=== PATIENT | female | born 1995 | race African-American/Black ===

== ENCOUNTER → 2020-01-31 08:46 | Outpatient (BNVA) | payer OTHER, SELFPAY | PROVIDERS: PCP Internal Medicine; Visit Provider Nurse Practitioner Gerontology | DX: E11.65 Type 2 diabetes mellitus with hyperglycemia (principal); Z79.4 Long term (current) use of insulin; I10 Essential (primary) hypertension; E55.9 Vitamin D deficiency, unspecified; E66.09 Other obesity due to excess calories; Z68.33 Body mass index [BMI] 33.0-33.9, adult | CPT/HCPCS: 99212 ==

== ENCOUNTER → 2020-03-02 08:11 | Outpatient (BNVA) | payer OTHER, SELFPAY | PROVIDERS: PCP Internal Medicine; Referring Provider Internal Medicine; Visit Provider Nurse Practitioner Gerontology | DX: Z76.89 Persons encountering health services in other specified circumstances (principal) ==

== ENCOUNTER → 2020-03-06 13:44 | Outpatient (BNVA) | payer OTHER, SELFPAY | PROVIDERS: PCP Internal Medicine; Referring Provider Internal Medicine; Visit Provider Nurse Practitioner Gerontology | DX: Z76.89 Persons encountering health services in other specified circumstances (principal) ==

== ENCOUNTER → 2020-07-25 13:53 | Outpatient (BNVA) | payer OTHER, SELFPAY | PROVIDERS: PCP Internal Medicine; Visit Provider Nurse Practitioner Gerontology ==

== ENCOUNTER 2020-10-03 10:48 | Outpatient (REF) | payer OTHER, SELFPAY ==
[2020-10-03 13:11] LABS: MANUAL DIFF FLAG NO
[2020-10-03 13:14] LABS: Basophils Percent Auto 0.5 % (0-2); Eosinophils Absolute Auto 0.1 X10*3/uL (0.0-0.4); Eosinophils Percent Auto 1.2 % (0-4); Hematocrit 34.9 % (37-47); Hemoglobin 10.6 g/dl (12.0-16.0); Imm Gran Abs Auto 0.02 X10*3/uL (0.00-0.03); Imm Gran Pct Auto 0.3 % (0.0-0.4); Lymphocytes Percent Auto 16.9 % (20-40); Mean Corpuscular HGB Conc 30.4 g/dl (31.0-35.0); Mean Corpuscular Hemoglobin 21.3 pg (27.0-33.0); Mean Corpuscular Volume 70.1 fL (80-98); Mean Platelet Volume 10.7 fL (9.4-12.3); Monocytes Absolute Auto 0.4 X10*3/uL (0.1-1.2); Monocytes Percent Auto 7.6 % (2-11); Neutrophils Absolute Auto 4.3 X10*3/uL (2.0-8.3); Neutrophils Percent Auto 73.5 % (45-73); Platelet Count 277 X10*3/uL (160-400); Red Blood Count 4.98 X10*6/uL (4.20-5.50); Red Cell Distribution Width 14.7 % (11.0-16.0); White Blood Count 5.8 X10*3/uL (4.8-10.8)
[2020-10-03 13:30] LABS: Estimated Average Glucose 269 mg/dL
[2020-10-03 13:39] LABS: Alanine Aminotransferase 28 U/L (0-31); Albumin Level 4.1 g/dL (3.5-5.0); Alkaline Phosphatase 88 U/L (39-117); Anion Gap 14 (12-20); Aspartate Amino Transferase 16 U/L (5-31); Bilirubin Total 1.3 mg/dL (0.0-1.0); Blood Urea Nitrogen 13 mg/dL (9-16); Calcium 9.7 mg/dL (8.4-10.2); Chloride 100 mmol/L (96-108); Cholesterol 132 mg/dL; Estimated Glomerular Filt Rate > 60; Glucose Fasting 313 mg/dL (60-99); HDL Cholesterol 48 mg/dL; LDL Cholesterol Calculated 73 mg/dl; Sodium 137 mmol/L (135-145); Total Protein 7.5 g/dL (6.5-8.0); Triglycerides 55 mg/dL
[2020-10-03 13:40] LABS: Carbon Dioxide 27 mmol/L (22-29)
[2020-10-03 13:42] LABS: Creatinine Urine 62.64 mg/dL; Microalbum/Creatinine Ratio Ur 205.9 ug/mg cr
[2020-10-03 14:01] LABS: Free T4 (Free Thyroxine) 1.15 ng/dL (0.71-1.85); Thyroid Stimulating Hormone 0.31 uIU/mL (0.32-4.0); Vitamin D 25-OH Total 4.6 ng/mL (>30)
[2020-10-04 17:21] LABS: LDL Cholesterol Direct 76 mg/dL (<100)
[2020-10-04 19:47] LABS: C Peptide 0.36 ng/mL (0.80-3.85)
[2020-10-08 01:57] LABS: Glutamic acid decarboxylase Ab >250 IU/mL (<5)
[2020-10-08 06:47] LABS: Fructosamine >600 umol/L (205-285)
[2020-10-12 00:18] LABS: Islet Cell Antibody Screen NEGATIVE (NEGATIVE)
== END 2020-10-03 10:49 | disposition home or self-care (01) ==
LOC: HO.10HDL 10:48
PROVIDERS: Nurse Practitioner Gerontology; Visit Provider Internal Medicine
DX: I12.9 Hypertensive chronic kidney disease with stage 1 through stage 4 chronic kidney disease, or unspecified chronic kidney disease (principal); E11.22 Type 2 diabetes mellitus with diabetic chronic kidney disease; N18.9 Chronic kidney disease, unspecified; E11.65 Type 2 diabetes mellitus with hyperglycemia; E55.9 Vitamin D deficiency, unspecified; D64.9 Anemia, unspecified; Z79.4 Long term (current) use of insulin
CPT/HCPCS: 36415; 80053; 80061; 82043; 82306; 82985; 83036; 83721; 84439; 84443; 84681; 85025; 86255; 86341

== ENCOUNTER 2020-12-19 11:07 | Outpatient (REF) | payer OTHER, SELFPAY ==
[2020-12-20 08:18] LABS: HBS Num1 > 1000.00 mIU/mL (0-7.99); ~Hepatitis B Surface Antibody REACTIVE (Nonreactive)
[2020-12-21 21:57] LABS: TS Negative Control Passed; TS Panel A 0; TS Panel B 0; TS Positive Control Passed; TSpotTB Negative (Negative)
== END 2020-12-19 11:08 | disposition home or self-care (01) ==
LOC: HO.10HDL 11:07
PROVIDERS: Visit Provider Internal Medicine
DX: Z11.1 Encounter for screening for respiratory tuberculosis (principal); Z01.84 Encounter for antibody response examination
CPT/HCPCS: 36415; 86481; 86706

== ENCOUNTER 2021-01-29 13:55 | Outpatient (REF) | payer OTHER, SELFPAY ==
[2021-01-29 14:51] LABS: Influenza A PCR NEGATIVE (Negative); Influenza B PCR NEGATIVE (Negative); Resp Syncy Virus RNA Qual PCR NEGATIVE (Negative); SARS COV2 PCR INHOUSE NEGATIVE (Negative)
== END 2021-01-29 13:56 | disposition home or self-care (01) ==
LOC: HO.LNP 13:55
PROVIDERS: Visit Provider Internal Medicine
DX: Z20.822 Contact with and (suspected) exposure to COVID-19 (principal)
CPT/HCPCS: 0241U

== ENCOUNTER → 2021-02-14 09:41 | Outpatient (BNVA) | payer OTHER, SELFPAY | PROVIDERS: PCP Internal Medicine; Visit Provider Nurse Practitioner Gerontology | DX: E10.65 Type 1 diabetes mellitus with hyperglycemia (principal); E55.9 Vitamin D deficiency, unspecified; E66.09 Other obesity due to excess calories; R80.9 Proteinuria, unspecified; I10 Essential (primary) hypertension; R79.89 Other specified abnormal findings of blood chemistry | CPT/HCPCS: 82947; 83036; 99212 ==

== ENCOUNTER 2021-02-14 10:24 | Emergency (ER) | payer OTHER, SELFPAY ==
[2021-02-14 11:20] VITALS: BP 127/88; PULSE 102; RESP 18; TEMP 36.2; O2SAT 100; BMI 28.3
--- NOTE | 2021-02-14 11:24 | PC.NURSE ---
poc [id number]
[2021-02-14 11:30] LABS: Glucose, Whole Blood 384 mg/dL (60-115)
[2021-02-14 11:59] LABS: MANUAL DIFF FLAG NO
[2021-02-14 12:05] LABS: Basophils Absolute Auto 0.1 X10*3/uL (0.0-0.2); Basophils Percent Auto 0.7 % (0-2); Eosinophils Absolute Auto 0.1 X10*3/uL (0.0-0.4); Hematocrit 37.7 % (37.0-47.0); Hemoglobin 11.6 g/dl (12.0-16.0); Imm Gran Abs Auto 0.04 X10*3/uL (0.00-0.03); Imm Gran Pct Auto 0.5 % (0.0-0.4); Lymphocytes Absolute Auto 1.4 X10*3/uL (1.2-4.9); Lymphocytes Percent Auto 18.7 % (20-40); Mean Corpuscular HGB Conc 30.8 g/dl (31.0-35.0); Mean Corpuscular Hemoglobin 20.8 pg (27.0-33.0); Mean Corpuscular Volume 67.6 fL (80.0-98.0); Mean Platelet Volume 9.8 fL (9.4-12.3); Monocytes Absolute Auto 0.6 X10*3/uL (0.1-1.2); Monocytes Percent Auto 8.3 % (2-11); Neutrophils Absolute Auto 5.2 x10*3/uL (2.0-8.3); Neutrophils Percent Auto 70.8 % (45-73); Platelet Count 319 X10*3/uL (160-400); Red Blood Count 5.58 X10*6/uL (4.20-5.50); Red Cell Distribution Width 15.8 % (11.0-16.0); White Blood Count 7.3 X10*3/uL (4.8-10.8)
[2021-02-14 12:28] LABS: Alanine Aminotransferase 12 U/L (0-31); Albumin Level 4.4 g/dL (3.5-5.0); Alkaline Phosphatase 86 U/L (39-117); Anion Gap 14 (12-20); Aspartate Amino Transferase 11 U/L (5-31); Bilirubin Total 1.4 mg/dL (0.0-1.0); Blood Urea Nitrogen 13 mg/dL (9-16); Calcium 10.1 mg/dL (8.4-10.2); Carbon Dioxide 27 mmol/L (22-29); Chloride 97 mmol/L (96-108); Estimated Glomerular Filt Rate 58; Glucose Random 373 mg/dL (60-115); Potassium 4.6 mmol/L (3.3-5.1); Sodium 133 mmol/L (135-145); Total Protein 8.1 g/dL (6.5-8.0)
--- NOTE | 2021-02-14 12:51 | ED_ITS ---
HPI - General Adult General Chief complaint: General Medical Stated complaint: high bs Time Seen by Provider: 02/14/21 12:51 Source: patient Mode of arrival: ambulatory Limitations: no limitations History of Present Illness HPI narrative: 26-year-old female with past medical history of type 1 diabetes, abnormal TSH, vitamin-D deficiency, hypertension was sent to emergency department by her post acute care registered nurse. Patient was seen in the Endocrinology day office this morning and her blood sugar was 479. Patient takes Lantus at night 22 units and metformin 1000 mg in the morning. Patient reports that she took all her medications as prescribed by her provider this morning. Patient denies any symptoms of hyperglycemia. Patient's A1c was 12.5 %. Related Data Home Medications Medication Instructions Recorded Confirmed lisinopril 10 mg tablet 10 mg PO BID tab 07/25/20 02/14/21 Previous Rx's Medication Instructions Recorded blood sugar diagnostic (FreeStyle #150 ea 02/14/21 Lite Strips) blood-glucose meter (FreeStyle #1 ea 02/14/21 Lite Meter) cholecalciferol (vitamin D3) 50 50 mcg PO DAILY #30 cap 02/14/21 mcg (2,000 unit) capsule insulin aspart U-100 100 unit/mL 5 unit (0.05 mL) SUBCUT TID #15 ml 02/14/21 (3 mL) subcutaneous pen (Novolog Flexpen U-100 Insulin aspart) insulin glargine 100 unit/mL (3 22 unit (0.22 mL) SUBCUT DAILY #15 02/14/21 mL) subcutaneous pen (Lantus ml Solostar U-100 Insulin) lancets 28 gauge (FreeStyle #200 ea 02/14/21 Lancets) pen needle, diabetic 32 gauge x #125 ea 02/14/2132 (BD Ultra-Fine Sowmya Pen Needle) Allergies Allergy/AdvReac Type Severity Reaction Status Date / Time Seasonal Allergies Allergy Mild stuffy Verified 02/14/21 11:20 Review of Systems Review of Systems: Constitutional : No Weight loss, No Fever, No Chills, No Night Sweats, No Fatigue, No Malaise ENT/Mouth : No Hearing loss, No Ear Pain, No Nasal Congestion, No Sinus Pain, No Hoarseness, No sore throat, No Rhinorrhea, No Swallowing Difficulty Eyes: No Eye Pain, No Swelling, No Redness, No Foreign Body, No Discharge, No Vision Changes Cardiovascular : No Chest Pain, No SOB, No Dyspnea on Exertion, No Orthopnea, No Edema, No Palpitations Respiratory : No Cough, No Sputum, No Wheezing, No Smoke Exposure, No Dyspnea Gastrointestinal : No Nausea, No Vomiting, No Diarrhea, No Constipation, No abdominal Pain, No Hematochezia, No Melena Genitourinary : no irregular bleeding, No Dysuria, No Urinary Frequency, No Hematuria, No Urinary Incontinence, No Urgency, No Flank Pain, No Urinary Flow Changes, No Hesitancy Musculoskeletal : No joint pain, No Myalgias, No Joint Swelling Skin : No Skin Lesions, No rash Neuro : No Weakness, No Numbness, No Paresthesias, No Loss of Consciousness, No Dizziness, No Headache Endocrine : No Polyuria, No Polydipsia, No Temperature Intolerance Yes all other systems are reviewed and are negative PMFSH Past Medical History Medical History Essential hypertension Obesity due to excess calories Proteinuria Type 1 diabetes mellitus with hyperglycemia Vitamin D deficiency Surgical History History of neurologic surgery Hx of bilateral breast reduction surgery Family History Family History Father CVD (cardiovascular disease) Mother No problems noted. Social History Social History Household Members: None Alcohol intake: current Alcohol intake frequency: holidays/special occasions only Alcohol type: wine Patient Tobacco Use Status: Never used Tobacco Substance Use Type: Marijuana Advance Directives: No Advance Directives Information Provided: No Patient : No Physical Exam Vital Signs: Vital Signs: Last Vital Signs Temp 98.9 F 02/14/21 14:03 Pulse 93 02/14/21 14:03 Resp 16 02/14/21 14:03 BP 130/84 02/14/21 14:03 Pulse Ox 99 02/14/21 14:03 Body Mass Index 28.3 Const: General: healthy appearing, no acute distress and well developed Nutritional Appearance: well nourished Orientation/consciousness: patient oriented x3 HENMT: Head: Yes normal to inspection, Yes normocephalic and Yes atraumatic Face and sinus: Yes normal facial exam Mouth: Normal oral and palatal mucosa present Throat: Yes posterior oropharynx normal, Yes tonsils normal and Yes uvula midline Eyes: General: appearance normal, both eyes and all related structures Neck: Neck: Yes normal visual inspection, Yes full ROM and Yes trachea midline Thyroid: Thyroid normal Resp: Effort & Inspection: normal respiratory effort, able to speak in complete sentences, no tracheal deviation and symmetric chest movement Auscul tation: clear to auscultation bilaterally Cardio: Jugular venous distension: no JVD Rate: regular rate Rhythm: regular rhythm Heart sounds: S1 normal heart sound present, S2 normal heart sound present, no gallops and no murmurs GI: Inspection: Yes normal to inspection and No distended Palpation (GI): Soft to palpation, not firm, nontender and No hepatosplenomegaly present Auscultation: normal bowel sounds : General: Yes no CVA tenderness Back/Spine/Pelvis: Back: no CVA tenderness Skin: General skin exam: elasticity normal, turgor normal and dry skin Neuro: General: patient oriented x3 Psych: Appearance: grossly normal Mental Status: mental status grossly normal Speech and movement: Normal speech and movement present Affect: normal affect Attitude: cooperative Thought process: Normal thought process present Thought content: Normal thought content present Insight: Good insight present (Psych) Judgement: Good judgement present (Psych) Course Course Course Narrative: 26-year-old female with past medical history of type 1 diabetes, vitamin-D deficiency, hypertension is here today sent by her post acute care registered nurse office. Patient was seen by post acute care registered nurse this morning and her blood sugar was 479. Her A1c was 12.5%. Patient denies any hyperglycemia symptoms. She is taking Lantus 22 units at night and metformin 1000 mg is in the morning. Patient reports that before her appointment she did took all the medication as prescribed. Her post acute care registered nurse stopped metformin and added NovoLog 5 units before meals. No change on her Lantus insulin. Repeat blood sugar in the ED was 373 initially. And that was 1 hour ago. Patient is hungry we will repeat blood sugar now Reevaluation(s) Reevaluation #1: Repeat blood sugars 325, will give her 5 units of insulin, IV fluids, food. Patient has normal anion gap, not in DKA. Patient looks hemodynamically stable. Will repeat blood sugar hour after her insulin. Time: 11:53 Time: 14:20 Reevaluation #3: Patient reports that she is feeling good. IV fluids infused, patient tolerated well. Ate lunch. Repeat blood sugar 236. Will send patient home to follow-up with her post acute care registered nurse. Medical Decision Making Lab Data Result diagrams: 02/14/21 11:53 02/14/21 11:53 Labs: Lab Results 02/14/21 02/14/21 02/14/21 Range/Units 11:25 11:53 11:53 WBC 7.3 (4.8-10.8) X10*3/uL RBC 5.58 H (4.20-5.50) X10*6/uL Hgb 11.6 L (12.0-16.0) g/dl Hct 37.7 (37.0-47.0) % MCV 67.6 L (80.0-98.0) fL MCH 20.8 L (27.0-33.0) pg MCHC 30.8 L (31.0-35.0) g/dl RDW 15.8 (11.0-16.0) % Plt Count 319 (160-400) X10*3/uL MPV 9.8 (9.4-12.3) fL Immature Gran % (Auto) 0.5 H (0.0-0.4) % Neut % (Auto) 70.8 (45-73) % Lymph % (Auto) 18.7 L (20-40) % [place] % (Auto) 8.3 (2-11) % Eos % (Auto) 1.0 (0-4) % Baso % (Auto) 0.7 (0-2) % Lymph # (Auto) 1.4 (1.2-4.9) X10*3/uL [place] # (Auto) 0.6 (0.1-1.2) X10*3/uL Eos # (Auto) 0.1 (0.0-0.4) X10*3/uL Baso # (Auto) 0.1 (0.0-0.2) X10*3/uL Abs Immat Gran (auto) 0.04 H (0.00-0.03) X10*3/uL Absolute Neuts (auto) 5.2 (2.0-8.3) x10*3/uL Absolute Nucleated RBC 0.000 (0.0-0.012) X10*3/uL Nucleated RBC % (auto) 0.0 (0.0-0.2) /100WBC Sodium 133 L (135-145) mmol/L Potassium 4.6 (3.3-5.1) mmol/L Chloride 97 (96-108) mmol/L Carbon Dioxide 27 (22-29) mmol/L Anion Gap 14 (12-20) BUN 13 (9-16) mg/dL Creatinine 1.12 (0.5-1.4) mg/dL Estim Creat Clear Calc 74.0 Estimated GFR 58 POC Glucose 384 H* (60-115) mg/dL Random Glucose 373 H* (60-115) mg/dL Calcium 10.1 (8.4-10.2) mg/dL Total Bilirubin 1.4 H (0.0-1.0) mg/dL AST 11 (5-31) U/L ALT 12 (0-31) U/L Alkaline Phosphatase 86 (39-117) U/L Total Protein 8.1 H (6.5-8.0) g/dL Albumin 4.4 (3.5-5.0) g/dL 02/14/21 02/14/21 Range/Units 12:53 14:20 WBC (4.8-10.8) X10*3/uL RBC (4.20-5.50) X10*6/uL Hgb (12.0-16.0) g/dl Hct (37.0-47.0) % MCV (80.0-98.0) fL MCH (27.0-33.0) pg MCHC (31.0-35.0) g/dl RDW (11.0-16.0) % Plt Count (160-400) X10*3/uL MPV (9.4-12.3) fL Immature Gran % (Auto) (0.0-0.4) % Neut % (Auto) (45-73) % Lymph % (Auto) (20-40) % [place] % (Auto) (2-11) % Eos % (Auto) (0-4) % Baso % (Auto) (0-2) % Lymph # (Auto) (1.2-4.9) X10*3/uL [place] # (Auto) (0.1-1.2) X10*3/uL Eos # (Auto) (0.0-0.4) X10*3/uL Baso # (Auto) (0.0-0.2) X10*3/uL Abs Immat Gran (auto) (0.00-0.03) X10*3/uL Absolute Neuts (auto) (2.0-8.3) x10*3/uL Absolute Nucleated RBC (0.0-0.012) X10*3/uL Nucleated RBC % (auto) (0.0-0.2) /100WBC Sodium (135-145) mmol/L Potassium (3.3-5.1) mmol/L Chloride (96-108) mmol/L Carbon Dioxide (22-29) mmol/L Anion Gap (12-20) BUN (9-16) mg/dL Creatinine (0.5-1.4) mg/dL Estim Creat Clear Calc Estimated GFR POC Glucose 325 H 236 H (60-115) mg/dL Random Glucose (60-115) mg/dL Calcium (8.4-10.2) mg/dL Total Bilirubin (0.0-1.0) mg/dL AST (5-31) U/L ALT (0-31) U/L Alkaline Phosphatase (39-117) U/L Total Protein (6.5-8.0) g/dL Albumin (3.5-5.0) g/dL Discharge Plan Discharge Clinical Impression: High blood sugar, Type 1 diabetes mellitus with hyperglycemia Patient Disposition: Home, Self-Care Instructions: Diabetic Hyperglycemia (ED), Diabetes Type 1: Management (ED) Additional Instructions: You were seen here today after your post acute care registered nurse's sent you for high blood sugar. You were given 1 L of fluids. Your blood sugar improved after giving you 5 units of insulin. Please make sure you follow-up with your post acute care registered nurse and take your insulin as ordered by her. You may return to emergency department if your symptoms will get worse or if you will experience any additional concerning symptoms Prescriptions: No Action lisinopril 10 mg tablet 10 mg PO BID RF: 0 (DME) blood-glucose meter [FreeStyle Lite Meter] Kit See Rx Instructions .ROUTE .MEDSUPPLY Qty: 1 RF: 0 (DME) FreeStyle Lite Strips Strip See Rx Instructions .ROUTE .MEDSUPPLY Qty: 150 RF: 11 (DME) lancets [FreeStyle Lancets] 28 gauge misc See Rx Instructions .ROUTE .MEDSUPPLY Qty: 200 RF: 11 insulin aspart U-100 [Novolog Flexpen U-100 Insulin] 100 unit/mL (3 mL) insulin pen 5 unit subcut TID Qty: 15 RF: 6 Lantus Solostar U-100 Insulin 100 unit/mL (3 mL) insulin pen 22 unit subcut DAILY Qty: 15 RF: 6 (DME) pen needle, diabetic [BD Ultra-Fine Sowmya Pen Needle] 32 gauge x 5/32 needle See Rx Instructions .ROUTE .MEDSUPPLY Qty: 125 RF: 11 cholecalciferol (vitamin D3) 50 mcg (2,000 unit) capsule 50 mcg PO DAILY Qty: 30 RF: 11 Referrals: Howard Crespo MD [Primary Care Provider] - 1 week Stand Alone Forms: Work/School Release Interventions: ED Discharge Assessment Last Done: 02/14/21 14:52 Discharge Date/Time: 02/14/21 14:53
[2021-02-14 12:57] LABS: Glucose, Whole Blood 325 mg/dL (60-115)
[2021-02-14] MEDS: 0.9 % Sodium Chloride 1,000 ML 999 ML IV (13:20)
[2021-02-14] MEDS: Insulin Regular, Human 100 UNIT/ML 3 ML VIAL IVPUSH (13:22)
[2021-02-14 14:03] VITALS: BP 130/84; PULSE 93; RESP 16; TEMP 37.2; O2SAT 99
[2021-02-14 14:25] LABS: Glucose, Whole Blood 236 mg/dL (60-115)
== END 2021-02-14 14:53 | disposition home or self-care (01) ==
PROVIDERS: Emergency Provider Emergency Medicine Emergency Medical Services; PCP Internal Medicine
DX: E10.65 Type 1 diabetes mellitus with hyperglycemia (principal); I10 Essential (primary) hypertension; Z79.4 Long term (current) use of insulin; Z79.899 Other long term (current) drug therapy
CPT/HCPCS: 36415; 80053; 82947; 85025; 96361; 96374; 99284

== ENCOUNTER → 2021-02-27 09:56 | Outpatient (BNVA) | payer OTHER, SELFPAY | PROVIDERS: PCP Internal Medicine; Visit Provider Registered Nurse Diabetes Educator | DX: E10.65 Type 1 diabetes mellitus with hyperglycemia (principal); Z79.4 Long term (current) use of insulin | CPT/HCPCS: 99211 ==

== ENCOUNTER 2021-02-28 07:52 | Emergency (ER) | payer OTHER, SELFPAY ==
[2021-02-28 08:04] LABS: Glucose, Whole Blood 243 mg/dL (60-115)
[2021-02-28 08:22] VITALS: BP 129/93; PULSE 90; RESP 16; TEMP 35.5; O2SAT 100
--- NOTE | 2021-02-28 08:28 | ED.GENADULT ---
HPI - General Adult General Chief complaint: General Medical Stated complaint: high bs Time Seen by Provider: 02/28/21 08:27 Source: patient Mode of arrival: ambulatory Limitations: no limitations History of Present Illness HPI narrative: 26 years old female with type 1 diabetes controlled with insulin, woke up this morning sugar was high, patient also felt that her body is swollen, noted cheeks and periorbital swelling with both hands, patient came to the ED for evaluation, While patient in the ED feeling back to normal. Related Data Home Medications Medication Instructions Recorded Confirmed lisinopril 10 mg tablet 10 mg PO BID tab 07/25/20 02/14/21 Previous Rx's Medication Instructions Recorded blood sugar diagnostic (FreeStyle #150 ea 02/14/21 Lite Strips) blood-glucose meter (FreeStyle #1 ea 02/14/21 Lite Meter) cholecalciferol (vitamin D3) 50 50 mcg PO DAILY #30 cap 02/14/21 mcg (2,000 unit) capsule insulin aspart U-100 100 unit/mL 5 unit (0.05 mL) SUBCUT TID #15 ml 02/14/21 (3 mL) subcutaneous pen (Novolog Flexpen U-100 Insulin aspart) insulin glargine 100 unit/mL (3 22 unit (0.22 mL) SUBCUT DAILY #15 02/14/21 mL) subcutaneous pen (Lantus ml Solostar U-100 Insulin) lancets 28 gauge (FreeStyle #200 ea 02/14/21 Lancets) pen needle, diabetic 32 gauge x #125 ea 02/14/21/32 (BD Ultra-Fine Sowmya Pen Needle) Allergies Allergy/AdvReac Type Severity Reaction Status Date / Time Seasonal Allergies Allergy Mild stuffy Verified 02/14/21 11:20 Review of Systems Review of Systems: All other systems are reviewed and are negative Constitutional: Reports as per HPI and Reports no additional constitutional complaints Eyes: Reports as per HPI and Reports no additional eye complaints Reports system reviewed and no additional complaints, except as documented Cardiovascular: Reports as per HPI and Reports no additional cardiovascular complaints Respiratory: Reports as per HPI and Reports no additional respiratory complaints Gastrointestinal: Reports as per HPI and Reports no additional gastrointestinal complaints Genitourinary: Reports no additional female genitourinary complaints Musculoskeletal: Reports no additional musculoskeletal complaints Skin/Breast: Reports system reviewed and no additional complaints, except as docu Psychiatric: Reports no additional psychiatric complaints Endocrine: Reports no additional endocrine complaints Hematologic/Lymphatic: Reports no additional hematologic/lymphatic complaints Allergic/Immunologic: Reports no additional allergic/immunologic complaints Reports system reviewed and no additional complaints, except as documented and Reports Abnormal speech present [facility] Past Medical History Medical History Essential hypertension Obesity due to excess calories Proteinuria Type 1 diabetes mellitus with hyperglycemia Vitamin D deficiency Surgical History History of neurologic surgery Hx of bilateral breast reduction surgery Family History Family History Father CVD (cardiovascular disease) Mother No problems noted. Social History Social History Household Members: None Alcohol intake: current Alcohol intake frequency: holidays/special occasions only Alcohol type: wine Patient Tobacco Use Status: Never used Tobacco Substance Use Type: Marijuana Advance Directives: No Advance Directives Information Provided: Yes Physical Exam Vital Signs: Vital Signs: Last Vital Signs Temp 98.1 F 02/28/21 10:50 Pulse 81 02/28/21 10:50 Resp 20 02/28/21 10:50 BP 141/102 H 02/28/21 10:50 Pulse Ox 100 02/28/21 10:50 BMI result Body Mass Index 30.0 Vital signs have been reviewed as appeared to be correct. Blood pressure normal. Heart rate normal. Respiration rate normal. Temperature normal. Oxygen saturation normal. Appearance: Alert. Oriented X3. No acute distress. Head: Normal external exam. Normocephalic. Atraumatic. No Calvin signs noted. No raccoon eyes noted Eyes: PERRLA. EOMI. Conjunctiva and sclera normal. Eyelids normal. ENT: TM's Normal. Pharynx normal. Uvula midline. Moist mucous membranes. No trismus noted. No drooling noted. No muffled voice noted. Neck: Normal inspection. Neck supple. FROM. No adenopathy. Thyroid Normal. No meningeal signs. No neck mass noted. CVS: Normal heart rate and rhythm. Heart sound normal. No murmurs noted. Pulses normal throughout. Respiratory: No respiratory distress. Painless inspiration. Breath sounds normal. No wheezes/rales/rhonchi noted. Chest nontender. No accessory muscle usage noted or decreased air movement noted. Abdomen: Soft and nontender. Bowel sounds normal in all 4 quadrants. No distention noted. No organomegaly noted. No visible injury noted. Back: No CVA tenderness. Full range of motion noted. Skin: Skin warm and dry. Normal skin color. Normal skin turgor. No rashes/lesions/lacerations noted. Extremities: No lower extremity edema. Extremities exhibit normal range of motion. Extremities nontender. Neuro: Oriented X 3. Cranial nerve exam: II-XII are grossly intact No motor deficit. No sensory deficit. Reflexes normal. Course Course Course Narrative: Assessment and plan. 26-year-old female history of insulin-dependent diabetes came in for hyperglycemia, patient has slight elevation blood sugar, no anion gap, patient not in DKA, clinically patient looks stable with stable vital signs. Patient will be discharged home instructed to drink plenty of fluid and keep monitoring her blood glucose. Medical Decision Making Lab Data Lab results reviewed: Yes I reviewed the patient's lab results. Result diagrams: 02/28/21 08:36 02/28/21 08:36 Labs: Lab Results 02/28/21 02/28/21 02/28/21 Range/Units 08:00 08:36 08:36 WBC 7.3 (4.8-10.8) X10*3/uL RBC 4.62 (4.20-5.50) X10*6/uL Hgb 9.8 L (12.0-16.0) g/dl Hct 31.3 L (37.0-47.0) % MCV 67.7 L (80.0-98.0) fL MCH 21.2 L (27.0-33.0) pg MCHC 31.3 (31.0-35.0) g/dl RDW 16.0 (11.0-16.0) % Plt Count 241 (160-400) X10*3/uL MPV 9.9 (9.4-12.3) fL Immature Gran % (Auto) 1.1 H (0.0-0.4) % Neut % (Auto) 71.8 (45-73) % Lymph % (Auto) 17.2 L (20-40) % [place] % (Auto) 8.5 (2-11) % Eos % (Auto) 1.1 (0-4) % Baso % (Auto) 0.3 (0-2) % Lymph # (Auto) 1.3 (1.2-4.9) X10*3/uL [place] # (Auto) 0.6 (0.1-1.2) X10*3/uL Eos # (Auto) 0.1 (0.0-0.4) X10*3/uL Baso # (Auto) 0.0 (0.0-0.2) X10*3/uL Abs Immat Gran (auto) 0.08 H (0.00-0.03) X10*3/uL Absolute Neuts (auto) 5.2 (2.0-8.3) x10*3/uL Absolute Nucleated RBC 0.000 (0.0-0.012) X10*3/uL Nucleated RBC % (auto) 0.0 (0.0-0.2) /100WBC Sodium 135 (135-145) mmol/L Potassium 4.2 (3.3-5.1) mmol/L Chloride 102 (96-108) mmol/L Carbon Dioxide 27 (22-29) mmol/L Anion Gap 10 L (12-20) BUN 15 (9-16) mg/dL Creatinine 1.00 (0.5-1.4) mg/dL Estim Creat Clear Calc 85.3 Estimated GFR > 60 POC Glucose 243 H (60-115) mg/dL Random Glucose 245 H (60-115) mg/dL Calcium 8.9 D (8.4-10.2) mg/dL Total Bilirubin 0.9 (0.0-1.0) mg/dL Direct Bilirubin 0.4 (0.0-0.5) mg/dL AST 12 (5-31) U/L ALT 14 (0-31) U/L Alkaline Phosphatase 79 (39-117) U/L Total Protein 6.4 L D (6.5-8.0) g/dL Albumin 3.5 D (3.5-5.0) g/dL Lipase 15 (8-78) U/L TSH 0.68 (0.32-4.0) uIU/mL Urine Color Urine Appearance Urine pH (5.0-8.0) Ur Specific [place] (1.005-1.025) Urine Protein (NEG-TRACE) MG/DL Urine Glucose (UA) (NEG) MG/DL Urine Ketones (NEG) MG/DL Urine Blood (NEG) Urine Nitrite (NEG) Ur Leukocyte Esterase (NEG) Urine RBC (0) /HPF Urine WBC (0-4) /HPF Ur Squamous Epith Cells /LPF Urine Bacteria Urine Test (NEGATIVE) 02/28/21 02/28/21 Range/Units 09:18 09:18 WBC (4.8-10.8) X10*3/uL RBC (4.20-5.50) X10*6/uL Hgb (12.0-16.0) g/dl Hct (37.0-47.0) % MCV (80.0-98.0) fL MCH (27.0-33.0) pg MCHC (31.0-35.0) g/dl RDW (11.0-16.0) % Plt Count (160-400) X10*3/uL MPV (9.4-12.3) fL Immature Gran % (Auto) (0.0-0.4) % Neut % (Auto) (45-73) % Lymph % (Auto) (20-40) % [place] % (Auto) (2-11) % Eos % (Auto) (0-4) % Baso % (Auto) (0-2) % Lymph # (Auto) (1.2-4.9) X10*3/uL [place] # (Auto) (0.1-1.2) X10*3/uL Eos # (Auto) (0.0-0.4) X10*3/uL Baso # (Auto) (0.0-0.2) X10*3/uL Abs Immat Gran (auto) (0.00-0.03) X10*3/uL Absolute Neuts (auto) (2.0-8.3) x10*3/uL Absolute Nucleated RBC (0.0-0.012) X10*3/uL Nucleated RBC % (auto) (0.0-0.2) /100WBC Sodium (135-145) mmol/L Potassium (3.3-5.1) mmol/L Chloride (96-108) mmol/L Carbon Dioxide (22-29) mmol/L Anion Gap (12-20) BUN (9-16) mg/dL Creatinine (0.5-1.4) mg/dL Estim Creat Clear Calc Estimated GFR POC Glucose (60-115) mg/dL Random Glucose (60-115) mg/dL Calcium (8.4-10.2) mg/dL Total Bilirubin (0.0-1.0) mg/dL Direct Bilirubin (0.0-0.5) mg/dL AST (5-31) U/L ALT (0-31) U/L Alkaline Phosphatase (39-117) U/L Total Protein (6.5-8.0) g/dL Albumin (3.5-5.0) g/dL Lipase (8-78) U/L TSH (0.32-4.0) uIU/mL Urine Color YELLOW Urine Appearance CLEAR Urine pH 6.0 (5.0-8.0) Ur Specific [place] 1.010 (1.005-1.025) Urine Protein NEG (NEG-TRACE) MG/DL Urine Glucose (UA) >=1000 H (NEG) MG/DL Urine Ketones NEG (NEG) MG/DL Urine Blood NEG (NEG) Urine Nitrite NEG (NEG) Ur Leukocyte Esterase NEG (NEG) Urine RBC 0 (0) /HPF Urine WBC 0 (0-4) /HPF Ur Squamous Epith Cells TRACE /LPF Urine Bacteria Not Reportable Urine Test NEGATIVE (NEGATIVE) Discharge Plan Discharge Clinical Impression: Type 1 diabetes mellitus with hyperglycemia Patient Disposition: Home, Self-Care Instructions: Diabetes and Exercise (ED) Prescriptions: No Action lisinopril 10 mg tablet 10 mg PO BID RF: 0 (DME) blood-glucose meter [FreeStyle Lite Meter] Kit See Rx Instructions .ROUTE .MEDSUPPLY Qty: 1 RF: 0 (DME) FreeStyle Lite Strips Strip See Rx Instructions .ROUTE .MEDSUPPLY Qty: 150 RF: 11 (DME) lancets [FreeStyle Lancets] 28 gauge misc See Rx Instructions .ROUTE .MEDSUPPLY Qty: 200 RF: 11 insulin aspart U-100 [Novolog Flexpen U-100 Insulin] 100 unit/mL (3 mL) insulin pen 5 unit subcut TID Qty: 15 RF: 6 Lantus Solostar U-100 Insulin 100 unit/mL (3 mL) insulin pen 22 unit subcut DAILY Qty: 15 RF: 6 (DME) pen needle, diabetic [BD Ultra-Fine Sowmya Pen Needle] 32 gauge x 5/32 needle See Rx Instructions .ROUTE .MEDSUPPLY Qty: 125 RF: 11 cholecalciferol (vitamin D3) 50 mcg (2,000 unit) capsule 50 mcg PO DAILY Qty: 30 RF: 11 Referrals: Howard Crespo MD [Primary Care Provider] - 2 days Stand Alone Forms: Work/School Release
[2021-02-28 08:41] LABS: MANUAL DIFF FLAG NO
[2021-02-28 08:45] LABS: Basophils Percent Auto 0.3 % (0-2); Eosinophils Absolute Auto 0.1 X10*3/uL (0.0-0.4); Eosinophils Percent Auto 1.1 % (0-4); Hematocrit 31.3 % (37.0-47.0); Hemoglobin 9.8 g/dl (12.0-16.0); Imm Gran Abs Auto 0.08 X10*3/uL (0.00-0.03); Imm Gran Pct Auto 1.1 % (0.0-0.4); Lymphocytes Absolute Auto 1.3 X10*3/uL (1.2-4.9); Lymphocytes Percent Auto 17.2 % (20-40); Mean Corpuscular HGB Conc 31.3 g/dl (31.0-35.0); Mean Corpuscular Hemoglobin 21.2 pg (27.0-33.0); Mean Corpuscular Volume 67.7 fL (80.0-98.0); Mean Platelet Volume 9.9 fL (9.4-12.3); Monocytes Absolute Auto 0.6 X10*3/uL (0.1-1.2); Monocytes Percent Auto 8.5 % (2-11); Neutrophils Absolute Auto 5.2 x10*3/uL (2.0-8.3); Neutrophils Percent Auto 71.8 % (45-73); Platelet Count 241 X10*3/uL (160-400); Red Blood Count 4.62 X10*6/uL (4.20-5.50); White Blood Count 7.3 X10*3/uL (4.8-10.8)
[2021-02-28 09:02] LABS: Alanine Aminotransferase 14 U/L (0-31); Albumin Level 3.5 g/dL (3.5-5.0); Alkaline Phosphatase 79 U/L (39-117); Anion Gap 10 (12-20); Aspartate Amino Transferase 12 U/L (5-31); Bilirubin Direct 0.4 mg/dL (0.0-0.5); Bilirubin Total 0.9 mg/dL (0.0-1.0); Blood Urea Nitrogen 15 mg/dL (9-16); Calcium 8.9 mg/dL (8.4-10.2); Carbon Dioxide 27 mmol/L (22-29); Chloride 102 mmol/L (96-108); Creatinine Clr Calc Pharmacy 85.3; Estimated Glomerular Filt Rate > 60; Glucose Random 245 mg/dL (60-115); Lipase 15 U/L (8-78); Potassium 4.2 mmol/L (3.3-5.1); Sodium 135 mmol/L (135-145); Total Protein 6.4 g/dL (6.5-8.0)
[2021-02-28 09:21] LABS: Thyroid Stimulating Hormone 0.68 uIU/mL (0.32-4.0)
[2021-02-28 09:28] LABS: Appearance Urine CLEAR; Color Urine YELLOW; Glucose Urine UA >=1000 MG/DL (NEG); Leukocyte Esterase Urine NEG (NEG); Nitrite Urine NEG (NEG); Urine Blood NEG (NEG); Urine Ketones NEG (NEG); Urine Protein NEG (NEG-TRACE)
[2021-02-28 09:32] VITALS: BP 135/100; PULSE 86; RESP 18; TEMP 36.8; O2SAT 100
[2021-02-28 09:47] LABS: RBC Urine 0 /HPF (0); Squamous Epithelial Cell Urine TRACE /LPF; WBC Urine 0 /HPF (0-4)
[2021-02-28 10:01] LABS: UPreg QC Valid YES; Urine Pregnancy NEGATIVE (NEGATIVE)
[2021-02-28 10:50] VITALS: BP 141/102; PULSE 81; RESP 20; TEMP 36.7; O2SAT 100
== END 2021-02-28 11:38 | disposition home or self-care (01) ==
PROVIDERS: Emergency Provider Emergency Medicine; PCP Internal Medicine
DX: E10.65 Type 1 diabetes mellitus with hyperglycemia (principal); I10 Essential (primary) hypertension; Z79.4 Long term (current) use of insulin
CPT/HCPCS: 36415; 80048; 80076; 81001; 81025; 82947; 83690; 84443; 85025; 99283; 99284

== ENCOUNTER 2021-03-18 15:07 | Outpatient (REF) | payer OTHER, SELFPAY ==
[2021-03-18 15:58] LABS: Influenza A PCR NEGATIVE (Negative); Influenza B PCR NEGATIVE (Negative); Resp Syncy Virus RNA Qual PCR NEGATIVE (Negative); SARS COV2 PCR INHOUSE NEGATIVE (Negative)
== END 2021-03-18 15:08 | disposition home or self-care (01) ==
LOC: HO.LNP 15:07
PROVIDERS: Visit Provider Internal Medicine
DX: R09.89 Other specified symptoms and signs involving the circulatory and respiratory systems (principal); J31.0 Chronic rhinitis; Z20.822 Contact with and (suspected) exposure to COVID-19
CPT/HCPCS: 0241U

== ENCOUNTER → 2021-03-27 08:17 | Outpatient (BNVA) | payer OTHER, SELFPAY | PROVIDERS: PCP Internal Medicine; Visit Provider Nurse Practitioner Gerontology ==

== ENCOUNTER 2021-05-15 10:05 | Outpatient (REF) | payer OTHER, SELFPAY ==
[2021-05-15 10:29] LABS: MANUAL DIFF FLAG NO
[2021-05-15 10:32] LABS: Basophils Percent Auto 0.4 % (0-2); Eosinophils Percent Auto 0.7 % (0-4); Hematocrit 33.9 % (37.0-47.0); Imm Gran Abs Auto 0.02 X10*3/uL (0.00-0.03); Imm Gran Pct Auto 0.4 % (0.0-0.4); Lymphocytes Absolute Auto 0.9 X10*3/uL (1.2-4.9); Lymphocytes Percent Auto 16.4 % (20-40); Mean Corpuscular HGB Conc 29.5 g/dl (31.0-35.0); Mean Corpuscular Hemoglobin 19.5 pg (27.0-33.0); Mean Platelet Volume 10.6 fL (9.4-12.3); Monocytes Absolute Auto 0.4 X10*3/uL (0.1-1.2); Monocytes Percent Auto 7.8 % (2-11); Neutrophils Absolute Auto 4.2 x10*3/uL (2.0-8.3); Neutrophils Percent Auto 74.3 % (45-73); Platelet Count 301 X10*3/uL (160-400); Red Blood Count 5.14 X10*6/uL (4.20-5.50); Red Cell Distribution Width 15.8 % (11.0-16.0); White Blood Count 5.6 X10*3/uL (4.8-10.8)
[2021-05-15 10:47] LABS: Estimated Average Glucose 301 mg/dL; Hemoglobin A1c % 12.1 %
[2021-05-15 11:06] LABS: Alanine Aminotransferase 7 U/L (0-31); Albumin Level 3.9 g/dL (3.5-5.0); Alkaline Phosphatase 85 U/L (39-117); Anion Gap 9 (12-20); Aspartate Amino Transferase 11 U/L (5-31); Bilirubin Total 1.2 mg/dL (0.0-1.0); Blood Urea Nitrogen 17 mg/dL (9-16); Calcium 9.6 mg/dL (8.4-10.2); Carbon Dioxide 28 mmol/L (22-29); Chloride 102 mmol/L (96-108); Estimated Glomerular Filt Rate > 60; Glucose Fasting 407 mg/dL (60-99); Iron 41 mcg/dL (30-160); Percent Iron Saturation 10 % (15-50); Potassium 4.4 mmol/L (3.3-5.1); Sodium 135 mmol/L (135-145); Total Iron Binding Capacity 427 mcg/dL (228-428); Total Protein 7.2 g/dL (6.5-8.0); Unsaturated Iron Binding 386 ug/dL
[2021-05-15 11:21] LABS: Thyroid Stimulating Hormone 0.17 uIU/mL (0.32-4.0)
[2021-05-15 14:19] LABS: Creatinine Urine 60.99 mg/dL; Microalbum/Creatinine Ratio Ur 85.2 ug/mg cr
== END 2021-05-15 10:06 | disposition home or self-care (01) ==
LOC: HO.10HDL 10:05
PROVIDERS: Visit Provider Internal Medicine
DX: E11.9 Type 2 diabetes mellitus without complications (principal); R63.5 Abnormal weight gain; I10 Essential (primary) hypertension; J31.0 Chronic rhinitis
CPT/HCPCS: 36415; 80053; 82043; 83036; 83540; 84443; 85025

== ENCOUNTER 2021-06-12 11:06 | Outpatient (REF) | payer OTHER, SELFPAY ==
[2021-06-12 12:09] LABS: Influenza A PCR NEGATIVE (Negative); Influenza B PCR NEGATIVE (Negative); Resp Syncy Virus RNA Qual PCR NEGATIVE (Negative); SARS COV2 PCR INHOUSE NEGATIVE (Negative)
== END 2021-06-12 11:07 | disposition home or self-care (01) ==
LOC: HO.LNP 11:06
PROVIDERS: Visit Provider Internal Medicine
DX: Z20.822 Contact with and (suspected) exposure to COVID-19 (principal); R05.9 Cough, unspecified; R19.7 Diarrhea, unspecified
CPT/HCPCS: 0241U

== ENCOUNTER 2021-09-20 12:39 | Outpatient (REF) | payer OTHER, SELFPAY ==
--- NOTE | 2021-09-20 | EEG_ITS ---
This is a 16-channel EEG with an EKG lead. The patient is reported awake during the tracing. Background EEG rhythm during early part of the tracing is slow to medium amplitude fast with no obvious asymmetry or paroxysmal tendency. The patient intermittently transitioned into drowsiness with no significant abnormality. No definite sharp wave spikes or paroxysmal tendency or asymmetry noted. Cardiac lead did not reveal any significant abnormality. IMPRESSION: No significant abnormality noted on this EEG. MD CACHORRO Head/TERRI / [id number]
--- NOTE | ~2021-09-20 | CT_ITS ---
EXAMINATION: CT HEAD WITHOUT CONTRAST CLINICAL INFORMATION: Syncope and collapse COMPARISON: None TECHNIQUE: Contiguous axial imaging was performed from the skull base to vertex without intravenous administration of contrast. This CT examination was performed using dose optimization techniques as appropriate, variously including the following: *Automated exposure control *Adjustment of mA and/or kV according to patient size (this includes techniques or standardized protocols for targeted exams where dose is matched to indication/reason for exam; i.e. extremities or head) *Use of iterative reconstruction technique DLP: 547 mGy-cm FINDINGS: There is no evidence of an extra-axial collection. There is no evidence of intra-axial or extra-axial hemorrhage. The ventricles and extra-axial CSF spaces are appropriate. Mackenzie-white matter differentiation is normal. No mass, mass effect or infarct is seen. There is a cassidy hole seen in the right frontal bone. No skull fracture is seen. There is bilateral maxillary and ethmoid and left frontal sinusitis. CT/CT head/brain wo con IMPRESSION: No acute intracranial findings. 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 Sinusitis.
== END 2021-09-20 12:40 | disposition home or self-care (01) ==
LOC: HO.NEURO 12:39
PROVIDERS: PCP Internal Medicine; Visit Provider Internal Medicine
DX: R55 Syncope and collapse (principal); G91.9 Hydrocephalus, unspecified
CPT/HCPCS: 70450; 95816

== ENCOUNTER 2021-11-11 10:40 | Outpatient (REF) | payer OTHER, SELFPAY ==
[2021-11-11 11:03] LABS: IDNOW Serial# 08D9AD1C; Strep A Nucleic Acid Negative (Negative)
[2021-11-11 11:26] LABS: Influenza A PCR NEGATIVE (Negative); Influenza B PCR NEGATIVE (Negative); Resp Syncy Virus RNA Qual PCR NEGATIVE (Negative); SARS COV2 PCR INHOUSE NEGATIVE (Negative)
== END 2021-11-11 10:41 | disposition home or self-care (01) ==
LOC: HO.LNP 10:40
PROVIDERS: Visit Provider Internal Medicine
DX: J02.9 Acute pharyngitis, unspecified (principal); R51.9 Headache, unspecified; Z20.822 Contact with and (suspected) exposure to COVID-19
CPT/HCPCS: 0241U; 87651

== ENCOUNTER 2022-02-24 17:22 | Outpatient (REF) | payer OTHER, SELFPAY ==
[2022-02-24 17:38] LABS: MANUAL DIFF FLAG NO
[2022-02-24 17:47] LABS: Basophils Percent Auto 0.3 % (0-2); Eosinophils Absolute Auto 0.1 X10*3/uL (0.0-0.4); Eosinophils Percent Auto 1.2 % (0-4); Hematocrit 35.4 % (37.0-47.0); Hemoglobin 10.8 g/dl (12.0-16.0); Imm Gran Abs Auto 0.03 X10*3/uL (0.00-0.03); Imm Gran Pct Auto 0.4 % (0.0-0.4); Lymphocytes Absolute Auto 1.4 X10*3/uL (1.2-4.9); Lymphocytes Percent Auto 20.9 % (20-40); Mean Corpuscular HGB Conc 30.5 g/dl (31.0-35.0); Mean Corpuscular Hemoglobin 20.8 pg (27.0-33.0); Mean Corpuscular Volume 68.2 fL (80.0-98.0); Mean Platelet Volume 10.3 fL (9.4-12.3); Monocytes Absolute Auto 0.6 X10*3/uL (0.1-1.2); Monocytes Percent Auto 9.6 % (2-11); Neutrophils Absolute Auto 4.5 x10*3/uL (2.0-8.3); Neutrophils Percent Auto 67.6 % (45-73); Platelet Count 262 X10*3/uL (160-400); Red Blood Count 5.19 X10*6/uL (4.20-5.50); Red Cell Distribution Width 15.7 % (11.0-16.0); White Blood Count 6.7 X10*3/uL (4.8-10.8)
[2022-02-24 17:54] LABS: Appearance Urine Clear; Color Urine Yellow; Glucose Urine UA >=1000 mg/dL (Negative); Leukocyte Esterase Urine Negative (Negative); Nitrite Urine Negative (Negative); PH 6.5 (5.0-9.0); Specific Gravity - Urine >= 1.030 (1.005-1.025); UMIC TRIGGER UACC YES; Urine Blood Negative (Negative); Urine Ketones Negative (Negative); Urine Protein Negative (Neg-Trace)
[2022-02-24 17:58] LABS: Estimated Average Glucose 283 mg/dL; Hemoglobin A1c % 11.5 %
[2022-02-24 18:11] LABS: Bacteria Urine None Seen (None Seen); Hyaline Casts Urine 0-2 /LPF (0-2); RBC Urine 0-2 /HPF (0-2); Squamous Epithelial Cell Urine 0-2 /HPF (0-2); WBC Urine 0-5 /HPF (0-5)
[2022-02-24 18:12] LABS: Alanine Aminotransferase 13 U/L (0-31); Albumin Level 3.8 g/dL (3.5-5.0); Alkaline Phosphatase 100 U/L (39-117); Anion Gap 10 (12-20); Aspartate Amino Transferase 14 U/L (5-31); Bilirubin Total 0.9 mg/dL (0.0-1.0); Blood Urea Nitrogen 13 mg/dL (9-16); C Reactive Protein 0.27 mg/dL (< or = 0.50); Calcium 8.8 mg/dL (8.4-10.2); Carbon Dioxide 26 mmol/L (22-29); Chloride 97 mmol/L (96-108); Estimated Glomerular Filt Rate 55; Glucose Random 681 mg/dL (60-115); Lipase 10 U/L (8-78); Potassium 4.2 mmol/L (3.3-5.1); Sodium 129 mmol/L (135-145); Total Protein 7.1 g/dL (6.5-8.0)
== END 2022-02-24 17:23 | disposition home or self-care (01) ==
LOC: HO.LAB 17:22
PROVIDERS: PCP Internal Medicine; Visit Provider Internal Medicine
DX: E11.9 Type 2 diabetes mellitus without complications (principal); R10.9 Unspecified abdominal pain
CPT/HCPCS: 36415; 80053; 81001; 83036; 83690; 85025; 86140; 87086

== ENCOUNTER 2022-03-05 10:43 | Outpatient (REF) | payer OTHER, SELFPAY ==
[2022-03-05 11:49] LABS: Influenza A PCR NEGATIVE (Negative); Influenza B PCR NEGATIVE (Negative); Resp Syncy Virus RNA Qual PCR NEGATIVE (Negative); SARS COV2 PCR INHOUSE NEGATIVE (Negative)
== END 2022-03-05 10:44 | disposition home or self-care (01) ==
LOC: HO.LNP 10:43
PROVIDERS: Visit Provider Internal Medicine
DX: Z20.822 Contact with and (suspected) exposure to COVID-19 (principal)
CPT/HCPCS: 0241U

== ENCOUNTER 2022-05-29 09:29 | Emergency (ER) | payer OTHER, SELFPAY ==
--- NOTE | ~2022-05-29 | US_ITS ---
EXAMINATION: US OBSTETRICAL ULTRASOUND CLINICAL INFORMATION: Cramping, beta hCG of 1357 COMPARISON: None. LMP: 04/23/2022. Gestational age by maternal dates is 5 weeks, 1 day. Estimated date of delivery by maternal dates is 01/28/2023. TECHNIQUE: Multiple 2-D grayscale and Doppler ultrasound images of the pelvis were obtained. FINDINGS: There is a single intrauterine gestational sac without visible yolk sac, embryo/fetus, and cardiac activity. There is no significant subchorionic hemorrhage or hematoma. HR: No embryonic pole. Not detected. CRL (crown rump length): No embryonic pole visualized. GESTATIONAL SAC: 0.21 cm , 4 weeks, 5 days +/- 4 days. DUKE (estimated date of delivery): 01/28/2023 +/- 4 days. MATERNAL ADNEXA: The right maternal ovary measures 5.2 x 2.8 x 3.5 cm. The left maternal ovary measures 2.9 x 1.5 x 2.0 cm. There is no significant maternal adnexal mass. No maternal pelvic ascites. US/US OB pelvic and transvaginal IMPRESSION: 1. Single intrauterine gestation with ultrasound gestational age of 4 weeks, 5 days +/- 4 days. Continued short-term monitoring of beta-hCG level and obstetric follow-up is recommended as indicated. Short-term repeat pelvic ultrasound is recommended to assess for viability.
[2022-05-29 09:55] VITALS: BP 146/100; PULSE 94; RESP 18; TEMP 36.1; O2SAT 100; BMI 33.7
--- NOTE | 2022-05-29 09:57 | ECG_ITS ---
Test Reason : cp Blood Pressure : / mmHG Vent. Rate : 096 BPM Atrial Rate : 096 BPM P-R Int : 136 ms QRS Dur : 082 ms QT Int : 338 ms P-R-T Axes : 060 021 040 degrees QTc Int : 427 ms Normal sinus rhythm Normal ECG No previous ECGs available Referred By: Generic ED Physician Electronically Signed By:SYEDA KINNEY MD
[2022-05-29 10:35] LABS: MANUAL DIFF FLAG NO
[2022-05-29 10:38] LABS: Basophils Percent Auto 0.6 % (0-2); Eosinophils Absolute Auto 0.1 X10*3/uL (0.0-0.4); Hematocrit 36.5 % (37.0-47.0); Hemoglobin 11.4 g/dl (12.0-16.0); Imm Gran Abs Auto 0.03 X10*3/uL (0.00-0.03); Imm Gran Pct Auto 0.4 % (0.0-0.4); Lymphocytes Absolute Auto 1.1 X10*3/uL (1.2-4.9); Lymphocytes Percent Auto 16.9 % (20-40); Mean Corpuscular HGB Conc 31.2 g/dl (31.0-35.0); Mean Corpuscular Hemoglobin 20.8 pg (27.0-33.0); Mean Corpuscular Volume 66.5 fL (80.0-98.0); Mean Platelet Volume 10.4 fL (9.4-12.3); Monocytes Absolute Auto 0.5 X10*3/uL (0.1-1.2); Monocytes Percent Auto 6.7 % (2-11); Neutrophils Percent Auto 74.4 % (45-73); Platelet Count 318 X10*3/uL (160-400); Red Blood Count 5.49 X10*6/uL (4.20-5.50); Red Cell Distribution Width 15.5 % (11.0-16.0); White Blood Count 6.7 X10*3/uL (4.8-10.8)
[2022-05-29 10:55] LABS: Troponin-I High Sensitivity 3.4 ng/L (<3.5-17.0)
[2022-05-29 11:04] LABS: HCG Quantitative 1357 mIU/mL
[2022-05-29 11:08] LABS: Anion Gap 15 (12-20); Blood Urea Nitrogen 12 mg/dL (9-16); Calcium 9.1 mg/dL (8.4-10.2); Carbon Dioxide 23 mmol/L (22-29); Chloride 101 mmol/L (96-108); Creatinine Clr Calc Pharmacy 92.6; Estimated Glomerular Filt Rate > 60; Glucose Random 420 mg/dL (60-115); Potassium 4.5 mmol/L (3.3-5.1); Sodium 134 mmol/L (135-145)
[2022-05-29 14:25] VITALS: BP 151/95; PULSE 102; RESP 12; O2SAT 100
[2022-05-29 14:39] LABS: Appearance Urine Clear; Color Urine Yellow; Glucose Urine UA >=1000 mg/dL (Negative); Leukocyte Esterase Urine Negative (Negative); Nitrite Urine Negative (Negative); Specific Gravity - Urine >= 1.030 (1.005-1.025); UMIC TRIGGER UACC YES; Urine Blood Negative (Negative); Urine Ketones 40 mg/dL (Negative); Urine Protein 100 (2+) mg/dL (Neg-Trace)
[2022-05-29 14:44] LABS: Bacteria Urine None Seen (None Seen); Hyaline Casts Urine 0-2 /LPF (0-2); RBC Urine 0-2 /HPF (0-2); Squamous Epithelial Cell Urine 0-2 /HPF (0-2); WBC Urine 0-5 /HPF (0-5)
[2022-05-29 14:56] LABS: Glucose, Whole Blood 244 mg/dL (60-115)
--- NOTE | 2022-05-29 15:06 | ED.CHESTPAIN ---
HPI - Chest Pain General Chief Complaint: Chest Pain Stated Complaint: , chest/L shoulder pain Time Seen by Provider: 05/29/22 13:31 Source: patient Mode of arrival: ambulatory History of Present Illness HPI narrative: 27-year-old female with history hypertension and diabetes neither is well controlled presents with complaints of left shoulder pain, chest pain and presents for evaluation. At the time of my interview she is chest pain-free. Patient is continuing to take her lisinopril although she knows that she is and states that her primary care provider Dr. Arroyo is following her. Patient denies any abdominal cramping, vaginal bleeding. Related Data Home Medications Medication Instructions Recorded Confirmed lisinopril 10 mg tablet 10 mg PO BID 07/25/20 03/27/21 Previous Rx's Medication Instructions Recorded blood sugar diagnostic (FreeStyle #150 ea 02/14/21 Lite Strips) blood-glucose meter (FreeStyle #1 ea 02/14/21 Lite Meter kit) lancets 28 gauge (FreeStyle #200 ea 02/14/21 Lancets) dulaglutide 0.75 mg/0.5 mL 0.75 mg (0.5 mL) subcut QWEEK #2 mL 03/11/21 subcutaneous pen injector (Trulicity) insulin aspart U-100 100 unit/mL See Rx Instructions subcut TID #15 03/27/21 (3 mL) subcutaneous pen (Novolog mL FlexPen U-100 Insulin aspart) cholecalciferol (vitamin D3) 50 50 mcg PO DAILY #90 caps 02/27/22 mcg (2,000 unit) capsule insulin glargine 100 unit/mL (3 30 unit (0.3 mL) subcut DAILY #15 03/20/22 mL) subcutaneous pen (Lantus mL Solostar U-100 Insulin) pen needle, diabetic 32 gauge x #150 ea 03/28/2232 (BD Ultra-Fine Sowmya Pen Needle) Allergies Allergy/AdvReac Type Severity Reaction Status Date / Time Seasonal Allergies Allergy Mild stuffy Verified 03/27/21 08:45 Review of Systems Review of Systems: Pertinent positives and negatives as stated in HPI PMFSH Past Medical History Source: nursing notes reviewed Medical History Essential hypertension Obesity due to excess calories Proteinuria Type 1 diabetes mellitus with hyperglycemia Vitamin D deficiency Surgical History History of neurologic surgery Hx of bilateral breast reduction surgery Family History Family History Father CVD (cardiovascular disease) Mother No problems noted. Social History Social History Household Members: None Alcohol intake: current Alcohol intake frequency: holidays/special occasions only Alcohol type: wine Patient Tobacco Use Status: Never used Tobacco Substance Use Type: Marijuana Advance Directives: No Physical Exam Vital Signs: Vital Signs: Last Vital Signs Temp 97 F 05/29/22 09:55 Pulse 102 H 05/29/22 14:25 Resp 12 05/29/22 14:25 BP 151/95 H 05/29/22 14:25 Pulse Ox 100 05/29/22 14:25 O2 Del Method 05/29/22 14:25 BMI result Body Mass Index 33.7 VITAL SIGNS: Reviewed. GENERAL: Well developed, well nourished, in no acute distress. HEAD: Normocephalic/atraumatic EYES: PERRLA, EOMI EARS: Ext canals without abnormality OROPHARYNX: no oral lesions noted, posterior pharynx clear LUNGS: Normal breath sounds. No adventitious sounds or accessory muscle use. SpO2<100> CARDIOVASCULAR: Regular rate and rhythm without noted murmurs, no JVD or lower extremity edema. ABDOMEN: Soft, non-tender, non-distended with bowel sounds. MUSCULOSKELETAL: No tenderness, deformities, or effusions noted on gross inspection. EXTREMITIES: No cyanosis, clubbing or edema. SKIN: Inspection of the skin reveals no rashes NEUROLOGIC: Alert and oriented x 4. Strength and sensation to light touch were grossly intact x 4. Medical Decision Making Medical Decision Making MDM Narrative: 27-year-old female with history and clinical presentation of hyperglycemia with out evidence DKA or HHS. Patient's repeat POC glucose is significantly improved. Extensively counseled her at bedside regarding the importance of blood sugar control given her as the impacted can have on her unborn fetus. Review of all investigations negative for acute findings, will repeat troponin, awaiting for ultrasound official read. Signed out to Dr Alanis. Differential Diagnosis Please see the discussion above Lab Data Please see the discussion above 05/29/22 10:30 05/29/22 10:30 Labs: Lab Results 05/29/22 05/29/22 05/29/22 Range/Units 10:30 10:30 10:30 WBC 6.7 (4.8-10.8) X10*3/uL RBC 5.49 (4.20-5.50) X10*6/uL Hgb 11.4 L (12.0-16.0) g/dl Hct 36.5 L (37.0-47.0) % MCV 66.5 L (80.0-98.0) fL MCH 20.8 L (27.0-33.0) pg MCHC 31.2 (31.0-35.0) g/dl RDW 15.5 (11.0-16.0) % Plt Count 318 (160-400) X10*3/uL MPV 10.4 (9.4-12.3) fL Immature Gran % (Auto) 0.4 (0.0-0.4) % Neut % (Auto) 74.4 H (45-73) % Lymph % (Auto) 16.9 L (20-40) % Moore % (Auto) 6.7 (2-11) % Eos % (Auto) 1.0 (0-4) % Baso % (Auto) 0.6 (0-2) % Lymph # (Auto) 1.1 L (1.2-4.9) X10*3/uL Moore # (Auto) 0.5 (0.1-1.2) X10*3/uL Eos # (Auto) 0.1 (0.0-0.4) X10*3/uL Baso # (Auto) 0.0 (0.0-0.2) X10*3/uL Abs Immat Gran (auto) 0.03 (0.00-0.03) X10*3/uL Absolute Neuts (auto) 5.0 (2.0-8.3) x10*3/uL Absolute Nucleated RBC 0.000 (0.0-0.012) X10*3/uL Nucleated RBC % (auto) 0.0 (0.0-0.2) /100WBC Sodium 134 L (135-145) mmol/L Potassium 4.5 (3.3-5.1) mmol/L Chloride 101 (96-108) mmol/L Carbon Dioxide 23 (22-29) mmol/L Anion Gap 15 (12-20) BUN 12 (9-16) mg/dL Creatinine 0.97 (0.5-1.4) mg/dL Estim Creat Clear Calc 92.6 Estimated GFR > 60 POC Glucose (60-115) mg/dL Random Glucose 420 H* (60-115) mg/dL Calcium 9.1 (8.4-10.2) mg/dL Troponin I High Sens 3.4 (<3.5-17.0) ng/L Beta HCG, Quant 1357 mIU/mL Urine Color Urine Appearance Urine pH (5.0-9.0) Ur Specific [place] (1.005-1.025) Urine Protein (Neg-Trace) mg/dL Urine Glucose (UA) (Negative) mg/dL Urine Ketones (Negative) mg/dL Urine Blood (Negative) Urine Nitrite (Negative) Ur Leukocyte Esterase (Negative) Urine RBC (0-2) /HPF Urine WBC (0-5) /HPF Ur Squamous Epith Cells (0-2) /HPF Urine Bacteria (None Seen) Hyaline Casts (0-2) /LPF 05/29/22 05/29/22 05/29/22 Range/Units 14:29 14:52 15:52 WBC (4.8-10.8) X10*3/uL RBC (4.20-5.50) X10*6/uL Hgb (12.0-16.0) g/dl Hct (37.0-47.0) % MCV (80.0-98.0) fL MCH (27.0-33.0) pg MCHC (31.0-35.0) g/dl RDW (11.0-16.0) % Plt Count (160-400) X10*3/uL MPV (9.4-12.3) fL Immature Gran % (Auto) (0.0-0.4) % Neut % (Auto) (45-73) % Lymph % (Auto) (20-40) % Moore % (Auto) (2-11) % Eos % (Auto) (0-4) % Baso % (Auto) (0-2) % Lymph # (Auto) (1.2-4.9) X10*3/uL Moore # (Auto) (0.1-1.2) X10*3/uL Eos # (Auto) (0.0-0.4) X10*3/uL Baso # (Auto) (0.0-0.2) X10*3/uL Abs Immat Gran (auto) (0.00-0.03) X10*3/uL Absolute Neuts (auto) (2.0-8.3) x10*3/uL Absolute Nucleated RBC (0.0-0.012) X10*3/uL Nucleated RBC % (auto) (0.0-0.2) /100WBC Sodium (135-145) mmol/L Potassium (3.3-5.1) mmol/L Chloride (96-108) mmol/L Carbon Dioxide (22-29) mmol/L Anion Gap (12-20) BUN (9-16) mg/dL Creatinine (0.5-1.4) mg/dL Estim Creat Clear Calc Estimated GFR POC Glucose 244 H (60-115) mg/dL Random Glucose (60-115) mg/dL Calcium (8.4-10.2) mg/dL Troponin I High Sens < 3.5 (<3.5-17.0) ng/L Beta HCG, Quant mIU/mL Urine Color Yellow Urine Appearance Clear Urine pH 6.0 (5.0-9.0) Ur Specific [place] >= 1.030 H (1.005-1.025) Urine Protein 100 (2+) H (Neg-Trace) mg/dL Urine Glucose (UA) >=1000 H (Negative) mg/dL Urine Ketones 40 (Negative) mg/dL Urine Blood Negative (Negative) Urine Nitrite Negative (Negative) Ur Leukocyte Esterase Negative (Negative) Urine RBC 0-2 (0-2) /HPF Urine WBC 0-5 (0-5) /HPF Ur Squamous Epith Cells 0-2 (0-2) /HPF Urine Bacteria None Seen (None Seen) Hyaline Casts 0-2 (0-2) /LPF Independent Interpretation I performed an independent interpretation of an: EKG Interpretation: Normal sinus rhythm, HR-96, no STEMI, NM/QRS/QTC is within normal limits. Discharge Plan Discharge Clinical Impression: Essential hypertension, Hyperglycemia, Patient Disposition: Still a Patient Instructions: Diabetic Hyperglycemia (ED), Hypertension (ED) Additional Instructions: 1. You need to follow-up with your primary care provider as soon as possible to supervisor policy change clerks your blood pressure medication. 2. You need to be very conscious of your blood sugars as this can negatively impact your . 3. Please call to set up an appointment with than private household worker as soon as possible. Please start taking vitamins. Return to the ER for any worsening symptoms. Prescriptions: No Action Trulicity 0.75 mg/0.5 mL pen injector 0.75 mg subcut QWEEK Qty: 2 3RF cholecalciferol (vitamin D3) 50 mcg (2,000 unit) capsule 50 mcg PO DAILY Qty: 90 1RF Lantus Solostar U-100 Insulin 100 unit/mL (3 mL) insulin pen 30 unit subcut DAILY Qty: 15 1RF (DME) pen needle, diabetic [BD Ultra-Fine Sowmya Pen Needle] 32 gauge x 5/32 needle See Rx Instructions .ROUTE .MEDSUPPLY Qty: 150 11RF Rx Instructions: As directed five times a day lisinopril 10 mg tablet 10 mg PO BID (DME) blood-glucose meter [FreeStyle Lite Meter] Kit See Rx Instructions .ROUTE .MEDSUPPLY Qty: 1 0RF Rx Instructions: As directed (DME) FreeStyle Lite Strips Strip See Rx Instructions .ROUTE .MEDSUPPLY Qty: 150 11RF Rx Instructions: As directed four times a day (DME) lancets [FreeStyle Lancets] 28 gauge misc See Rx Instructions .ROUTE .MEDSUPPLY Qty: 200 11RF Rx Instructions: 4 times a day insulin aspart U-100 [Novolog FlexPen U-100 Insulin] 100 unit/mL (3 mL) insulin pen See Rx Instructions subcut TID Qty: 15 4RF Rx Instructions: 10 units with meals, 3 units with snacks subcut 3 times a day; Referrals: Howard Crespo MD [Primary Care Provider] - Kayden Arroyo MD [Physician] -
[2022-05-29 16:16] LABS: Troponin-I High Sensitivity < 3.5 ng/L (<3.5-17.0)
[2022-05-29] MEDS: Labetalol HCL 100 MG TABLET PO (17:20)
== END 2022-05-29 17:25 | disposition home or self-care (01) ==
PROVIDERS: Student in an Organized Health Care Education/Training Program; Emergency Provider Emergency Medicine; PCP Internal Medicine
DX: O16.1 Unspecified maternal hypertension, first trimester (principal); O24.911 Unspecified diabetes mellitus in pregnancy, first trimester; R07.89 Other chest pain; Z3A.01 Less than 8 weeks gestation of pregnancy; Z79.899 Other long term (current) drug therapy
CPT/HCPCS: 36415; 76801; 76817; 80048; 81001; 82947; 84484; 84702; 85025; 93005; 99284

== ENCOUNTER 2023-04-30 10:54 | Outpatient (REF) | payer OTHER, SELFPAY ==
[2023-04-30 11:18] LABS: MANUAL DIFF FLAG NO
[2023-04-30 11:57] LABS: Basophils Percent Auto 0.5 % (0-2); Hemoglobin 9.3 g/dl (12.0-16.0); Imm Gran Abs Auto 0.03 X10*3/uL (0.00-0.03); Imm Gran Pct Auto 0.4 % (0.0-0.4); Lymphocytes Absolute Auto 1.3 X10*3/uL (1.2-4.9); Lymphocytes Percent Auto 16.1 % (20-40); Mean Corpuscular Hemoglobin 21.7 pg (27.0-33.0); Mean Corpuscular Volume 70.1 fL (80.0-98.0); Mean Platelet Volume 10.6 fL (9.4-12.3); Monocytes Absolute Auto 0.6 X10*3/uL (0.1-1.2); Neutrophils Absolute Auto 6.1 x10*3/uL (2.0-8.3); Platelet Count 337 X10*3/uL (160-400); Red Blood Count 4.28 X10*6/uL (4.20-5.50); Red Cell Distribution Width 13.8 % (11.0-16.0)
[2023-04-30 12:13] LABS: Estimated Average Glucose 171 mg/dL; Hemoglobin A1c % 7.6 % (<6.0)
[2023-04-30 12:39] LABS: Creatinine Urine 219.45 mg/dL
[2023-04-30 12:51] LABS: Microalbum/Creatinine Ratio Ur 283.4 ug/mg cr (<30)
[2023-04-30 12:53] LABS: Alanine Aminotransferase 11 U/L (0-31); Albumin Level 4.4 g/dL (3.5-5.0); Alkaline Phosphatase 76 U/L (39-117); Anion Gap 14 (12-20); Aspartate Amino Transferase 13 U/L (5-31); Bilirubin Total 0.7 mg/dL (0.0-1.0); Blood Urea Nitrogen 23 mg/dL (9-16); Calcium 9.4 mg/dL (8.4-10.2); Carbon Dioxide 23 mmol/L (22-29); Chloride 106 mmol/L (96-108); Estimated Glomerular Filt Rate 59; Glucose Random 182 mg/dL (60-115); Potassium 4.1 mmol/L (3.3-5.1); Sodium 139 mmol/L (135-145); Total Protein 7.8 g/dL (6.5-8.0)
[2023-04-30 13:05] LABS: Vitamin B12 313 pg/mL (200-900)
[2023-04-30 13:08] LABS: Thyroid Stimulating Hormone 0.26 uIU/mL (0.32-4.0)
== END 2023-04-30 10:55 | disposition home or self-care (01) ==
LOC: HO.LAB 10:54
PROVIDERS: PCP Internal Medicine; Visit Provider Internal Medicine
DX: E11.9 Type 2 diabetes mellitus without complications (principal); M79.10 Myalgia, unspecified site; N18.9 Chronic kidney disease, unspecified
CPT/HCPCS: 36415; 80053; 82043; 82570; 82607; 83036; 84443; 85025; 86140

== ENCOUNTER 2023-05-15 10:04 | Outpatient (REF) | payer OTHER, SELFPAY ==
[2023-05-15 12:10] LABS: Free T4 (Free Thyroxine) 1.05 ng/dL (0.71-1.85); Iron 48 mcg/dL (30-160); Percent Iron Saturation 22 % (15-50); Thyroid Stimulating Hormone 0.35 uIU/mL (0.32-4.0); Total Iron Binding Capacity 219 mcg/dL (228-428); Unsaturated Iron Binding 171 ug/dL
[2023-05-16 10:34] LABS: Triiodothyronine T3 Free 3.2 pg/mL (2.3-4.2)
== END 2023-05-15 10:05 | disposition home or self-care (01) ==
LOC: HO.10HDL 10:04
PROVIDERS: Visit Provider Internal Medicine
DX: D64.9 Anemia, unspecified (principal); N18.9 Chronic kidney disease, unspecified; E03.9 Hypothyroidism, unspecified
CPT/HCPCS: 36415; 83540; 84439; 84443; 84481

== ENCOUNTER 2024-04-06 10:47 | Outpatient (REF) | payer OTHER, SELFPAY ==
--- OUTSIDE RECORDS SUMMARY | 2024-04-06 11:12 | XMS_ITS | Continuity of Care Document ---
Author Organization [facility] Address [address] [place] [id number] Care Team Providers Care Wellness Nurse Rn Name Role Phone Howard Crespo MD Primary Care Physician [id number] Date(s): 02/05/24 - 03/06/[address] [address] Encounter Type: Triage Allergies, Adverse Reactions, Alerts Substance Criticality Severity Reaction Reaction Severity Status Rodrigues Active Immunizations Given and Recorded Vaccine Date Status Refusal Reason influenza virus vaccine, inactivated 01/23/23 Give n tetanus/diphtheria/pertussis, acel(Tdap) 12/10/22 Given Medications acetaminophen 325 mg oral tablet 650 mg, By Mouth, Every 4 hours, # 90 tablet, Refills 0, Tot. Refills 0, Maintenance, 01/23/23 6:38:00 PM EDT, Route to Pharmacy Electronically, [facility]/pharmacy #[id number], Partial fill upon patient request if the prescription is for a schedule II opioid drug., 163, cm, 01/23/23 16:30:00 EDT, Height, 103, kg, 01/16/23 22:18:00 EDT, Dry Weight Start Date: 01/23/23 Status: Ordered Quantity: 90.0 Unit: tablet Repeat number: 1 BD UF MINI PEN NEEDLE [id number] BD UF MINI PEN NEEDLE [id number], See Instructions, # 100 Unknown, 4 Refills, Maintenance, TO USE WITHINSULIN 4 X DAY, 02/19/24 4:21:00 PM EST, 163, cm, 02/18/24 14:51:00 EST, Height, 103, kg, 01/16/2322:18:00 EDT, Dry Weight Start Date: 02/19/24 Status: Ordered Quantity: 100.0 Unit: Unknown Repeat number: 1 Dexcom G7 Access Database Developer Dexcom G7 Access Database Developer, See Instructions, # 1 each, Refills 0, Tot. Refills 0, Maintenance, Use as directed for Diabetes Control, 05/25/23 5:13:00 PM EST, Supply, 163, cm, 05/22/23 16:13:00 EST, Height, 103, kg, 01/16/23 22:18:00 EDT, Dry Weight Start Date: 05/25/23 Status: Ordered Quantity: 1.0 Unit: each Repeat number: 1 Indication: Type 2 diabetes mellitus without complications Dexcom G7 Sensor Dexcom G7 Sensor, See Instructions, # 9 each, Refills 3, Tot. Refills 3, Maintenance, Use as directed for Diabetes Control, 05/25/23 5:13:00 PM EST, Supply, 163, cm, 05/22/23 16:13:00 EST, Height, 103, kg, 01/16/23 22:18:00 EDT, Dry Weight Start Date: 05/25/23 Status: Ordered Quantity: 9.0 Unit: each Repeat number: 4 Indication: Type 2 diabetes mellitus without complications ferrous sulfate 325 mg oral enteric coated tablet 325 mg, 1, tablet, By Mouth, Daily, Refills 0, Maintenance, 09/18/22 12:26:00 PM EDT, Partial fill upon patient request if the prescription is for a schedule II opioid drug. Start Date: 09/18/22 Status: Ordered Repeat number: 1 fluconazole 150 mg oral tablet 1 tablet = 150 mg, By Mouth, Once, epeat dose if still having symptoms in 72 hours, # 2 tablet, 1 Refills, Soft Stop, 02/11/24 11:17:00 AM EST, Tablet, [facility]pharm[facility] #[id number], Partial fill upon patient request if the prescription is for a schedule II opioid drug., 163, cm, 10/12/23 14:40:00 EDT, Height, 103, kg, 01/16/23 22:18:00 EDT, Dry Weight Start Date: 02/11/24 Status: Ordered Quantity: 2.0 Unit: tablet Repeat number: 2 fluconazole 150 mg oral tablet 1 tablet = 150 mg, By Mouth, Once, # 1 tablet, 0 Refills, Soft Stop, 01/09/24 8:13:00 PM EDT, Tablet, [facility]/pharmacy #[id number], Partial fill upon patient request if the prescription is for a schedule II opioid drug., 163, cm, 10/12/23 14:40:00 EDT, Height, 103, kg, 01/16/23 22:18:00 EDT, Dry Weight Start Date: 01/09/24 Status: Ordered Quantity: 1.0 Unit: tablet Repeat number: 1 fluticasone 50 mcg/inh nasal spray 1 sprays, Nares, Both, 2 times a day, PRN Congestion, # 16 Gm, 0 Refills, Maintenance, 01/04/23 10:51:00 AM EDT, [place], [facility]/pharmacy #[id number], Partial fill upon patient request if the prescription is fora schedule II opioid drug., 1 sprays Nares, Both 2 times a day,PRN:Congestion, 162.51, cm, 01/04/2310:01:00 EDT, Height, 97.5, kg, 10/17/22 21:27:00 EDT, Dry Weight Start Date: 01/04/23 Status: Ordered Quantity: 16.0 Unit: g Repeat number: 1 Indication: Streptococcal pharyngitis Freestyle Lite Test Strips See Instructions, # 1 pack/packet, Refills 3, Tot. Refills 3, Maintenance, To test blood sugar 4 x day. 1 Bottle= 100 test strips, 12/04/22 12:44:00 PM EDT, Compound, 162.51, cm, 10/29/22 9:32:00 EDT, Height, 97.5, kg, 10/17/22 21:27:00 EDT, Dry Weight Start Date: 12/04/22 Status: Ordered Quantity: 1.0 Unit: pack/packet Repeat number: 4 ibuprofen 800 mg oral tablet 800 mg, 1, tablet, By Mouth, Every 8 hours, # 60 tablet, Refills 0, Tot. Refills 0, Maintenance, 01/23/23 6:38:00 PM EDT, Route to Pharmacy Electronically, [facility]/pharmacy #[id number], Partial fill upon patient request if the prescription is for a schedule II opioid drug., 163, cm, 01/23/23 16:30:00 EDT, Height, 103, kg, 01/16/23 22:18:00 EDT, Dry Weight Start Date: 01/23/23 Status: Ordered Quantity: 60.0 Unit: tablet Repeat number: 1 Insulin Lispro KwikPen 100 units/mL injectable solution See Instructions, Max dose 100 units daily, # 90 mL, 3 Refills, Maintenance, 05/22/23 5:04:00 PM EST, [facility]/pharmacy #[id number], Partial fill upon patient request if the prescription is for a schedule II opioid drug., 163, cm, 05/22/23 16:13:00 EST, Height, 103, kg, 01/16/23 22:18:00 EDT, Dry Weight Start Date: 05/22/23 Status: Ordered Quantity: 90.0 Unit: mL Repeat number: 4 Indication: Type 2 diabetes mellitus without complications labetalol 200 mg oral tablet = 800 mg, By Mouth, 3 times a day, # 90 tablet, 3 Refills, Maintenance, 01/23/23 6:45:00 PM EDT, Tablet, [facility]/pharmacy #[id number], Partial fill upon patient request if the prescription is for a schedule IIopioid drug., 163, cm, 01/23/23 16:30:00 EDT, Height, 103, kg, 01/16/23 22:18:00 EDT, Dry Weight Start Date: 01/23/23 Status: Ordered Quantity: 90.0 Unit: tablet Repeat number: 4 Lantus Solostar Pen 100 units/mL subcutaneous solution = 28 units, Subcutaneous Infusion, Daily at bedtime, 90 days supplies, # 27 mL, 3 Refills, Maintenance, 05/22/23 5:03:00 PM EST, [id number], Partial fill upon patient request if the prescription is for a schedule II opioid drug., 163, cm, 05/22/23 16:13:00 EST, Height, 103, kg, 01/16/23 22:18:00 EDT, Dry Weight Start Date: 05/22/23 Status: Ordered Quantity: 27.0 Unit: mL Repeat number: 4 Indication: Type 2 diabetes mellitus without complications metFORMIN 1000 mg oral tablet 1 tablet = 1,000 mg, By Mouth, 2 times a day, # 180 tablet, 3 Refills, Maintenance, 05/22/23 5:07:00PM EST, Tablet, [id number], Partial fill upon patient request if the prescription is for a schedule II opioid drug., 163, cm, 05/22/23 16:13:00 EST, Height, 103, kg, 01/16/23 22:18:00 EDT, Dry Weight Start Date: 05/22/23 Stop Date: 05/16/24 Status: Ordered Quantity: 180.0 Unit: tablet Repeat number: 4 Indication: Type 2 diabetes mellitus without complications Mounjaro 2.5 mg/0.5 mL subcutaneous solution = 2.5 mg, Subcutaneous Injection, Every week, rotate injection sites, # 4 each, 2 Refills, Maintenance, 02/22/24 2:08:00 PM EST, Solution, [id number], Partial fill upon patient request if theprescription is for a schedule II opioid drug., 163, cm, 02/18/24 14:51:00 EST, Height, 103, kg, 01/16/23 22:18:00 EDT, Dry Weight Start Date: 02/22/24 Status: Ordered Quantity: 4.0 Unit: each Repeat number: 3 NIFEdipine 60 mg oral tablet, extended release 60 mg, By Mouth, 2 times a day, # 60 tablet, Refills 0, Tot. Refills 0, Maintenance, 01/23/23 6:43:00 PM EDT, Route to Pharmacy Electronically, [id number], Partial fill upon patient request if the prescription is for a schedule II opioid drug., 163, cm, 01/23/23 16:30:00 EDT, Height, 103, kg, 01/16/23 22:18:00 EDT, Dry Weight Start Date: 01/23/23 Stop Date: 02/22/23 Status: Ordered Quantity: 60.0 Unit: tablet Repeat number: 1 oxyCODONE 5 mg oral tablet 5 mg, 1, tablet, By Mouth, Every 3 hours, PRN, # 10 tablet, Refills 0, Tot. Refills 0, Maintenance,Pain , Severe, 01/23/23 6:38:00 PM EDT, Route to Pharmacy Electronically, [facility]/pharmacy #[id number], Partial fill upon patient request if the prescription is for a schedule II opioid drug., 163, cm, 01/23/23 16:30:00 EDT, Height, 103, kg, 01/16/23 22:18:00 EDT, Dry Weight Start Date: 01/23/23 Status: Ordered Quantity: 10.0 Unit: tablet Repeat number: 1 Pen [place]ard, 31 G x 5 mm BD Ultra Fine III See Instructions, # 120 each, Refills 3, Tot. Refills 3, Maintenance, To use with insulin 4 x day, 08/31/23 3:03:00 PM EDT, Supply, 163, cm, 05/22/23 16:13:00 EST, Height, 103, kg, 01/16/23 22:18:00 EDT, Dry Weight Start Date: 08/31/23 Status: Ordered Quantity: 120.0 Unit: each Repeat number: 4 Indication: Type 2 diabetes mellitus without complications Multivitamins By Mouth, Daily, 0 Refills, Maintenance, 09/18/22 12:24:00 PM EDT, Partial fill upon patient requestif the prescription is for a schedule II opioid drug. Start Date: 09/18/22 Status: Ordered Repeat number: 1 Trulicity Pen 1.5 mg/0.5 mL subcutaneous solution 0.5 mL = 1.5 mg, Subcutaneous Injection, Every week, 0.5 ml = 1.5 mg, Subcutaneous Inection, every week. rotate injection sites, # 2.5 mL, 2 Refills, Maintenance, 02/18/24 3:02:00 PM EST, Solution, [facility]/pharmacy #[id number], Partial fill upon patient request if the prescription is for a schedule II opioiddrug., 163, cm, 02/18/24 14:51:00 EST, Height, 103, kg, 01/16/23 22:18:00 EDT, Dry Weight Start Date: 02/18/24 Stop Date: 05/18/24 Status: Ordered Quantity: 2.5 Unit: mL Repeat number: 3 Indication: Type 2 diabetes mellitus without complications Problem List Condition Confirmation Course Effective Dates Status Health St atus Informant Anemia Confirmed Active Diabetes mellitus in , antepartum Confirmed Active Obese class I Confirmed Active Obesity in Confirmed Active Chronic hypertension in Confirmed Active Proteinuria Confirmed Active Type 2 diabetes mellitus Confirmed Active Social History Social History Type Response Smoking Status Never (less than 100 in lifetime) entered on: 10/11/20 Sex Sex Representation Female (finding) Patient Care team information Care Team Personnel Name: Howard Crespo MD Position: [facility] Outreach Member Role: PCP Address: [address] [place] [address] Howard Crespo MD [place], [place] [address] Telecom: Name: Meghana Mcmahan MD Position: [facility] BARK TANNER Member Role: Lifetime BARK TANNER Physician Address: [address] [place] [address] [facility] [place] [address]- Telecom: Care Team Related Persons Name: LISHA PITTS Name: GISSELLE PALOMINO Insurance Providers Guarantor name: ANTHONYSHAUN PITTS Health Plan Information #: 1 Payer: [employer] Member Number: NA Policy Number: NA Group Number: NA
--- OUTSIDE RECORDS SUMMARY | 2024-04-06 11:12 | XMS_ITS | Continuity of Care Document ---
Author Organization [facility] Address [address] [place] [id number]- Care Team Providers Care Ladle Car Operator Name Role Phone Howard Crespo MD Primary Care Physician Encounter [facility] [id number] Date(s): 02/18/24 - 03/19/[address] [address] Encounter Type: Triage Allergies, Adverse Reactions, Alerts [...] 6:38:00 PM EDT, Route to Pharmacy Electronically, [facility]/pharmacy #[id number], Partial fill upon patient request if the prescription is for a schedule II opioid drug., 163, cm, 01/23/23 16:30:00 EDT, Height, 103, kg, 01/16/23 22:18:00 EDT, Dry Weight Start Date: 01/23/23 Status: Ordered Quantity: 90.0 Unit: tablet Repeat number: 1 BD UF MINI PEN NEEDLE [id number] BD UF MINI PEN NEEDLE [id number], See Instructions, # 100 Unknown, 4 Refills, Maintenance, TO USE WITHINSULIN 4 X DAY, 02/19/24 4:21:00 PM EST, 163, cm, 02/18/24 14:51:00 EST, Height, 103, kg, 01/16/2322:18:00 EDT, Dry Weight Start Date: 02/19/24 Status: Ordered Quantity: 100.0 Unit: Unknown Repeat number: 1 Dexcom G7 Tire Building Supervisor Dexcom G7 Tire Building Supervisor, See Instructions, # 1 each, Refills 0, [...] Soft Stop, 01/09/24 8:13:00 PM EDT, Tablet, [id number], Partial fill upon patient [...] 0 Refills, Maintenance, 01/04/23 10:51:00 AM EDT, [place], [id number], Partial fill upon patient request [...] 6:38:00 PM EDT, Route to Pharmacy Electronically, [facility]/pharmacy #[id number], Partial fill upon patient request if [...] 3 Refills, Maintenance, 05/22/23 5:04:00 PM EST, [facility]/pharmacy #[id number], Partial fill upon patient request if [...] Refills, Maintenance, 01/23/23 6:45:00 PM EDT, Tablet, [facility]/pharmacy #[id number], Partial fill upon patient request if [...] 6:38:00 PM EDT, Route to Pharmacy Electronically, [facility]/pharmacy #[id number], Partial fill upon patient request if the prescription is for a schedule II opioid drug., 163, cm, 01/23/23 16:30:00 EDT, Height, 103, kg, 01/16/23 22:18:00 EDT, Dry Weight Start Date: 01/23/23 Status: Ordered Quantity: 10.0 Unit: tablet Repeat number: 1 Pen [place], 31 G x 5 mm BD Ultra [...] Refills, Maintenance, 02/18/24 3:02:00 PM EST, Solution, [facility]/pharmacy #[id number], Partial fill upon patient request if [...] Team Personnel Name: Howard Crespo MD Position: [facility] Outreach Member Role: PCP Address: [address] [place] [address] Howard Crespo MD [address] Telecom: Name: Meghana Mcmahan MD Position: [facility] ER TECH Member Role: Lifetime ER TECH Physician Address: [address] [place] [address] [facility] [place] [address]- Telecom: Care Team Related Persons Name: LISHA PITTS Name: GISSELLE PALOMINO Insurance Providers Guarantor name: ANTHONYSHAUN PITTS Health Plan Information #: 1 Payer: [employer] Member Number: NA Policy Number: NA Group Number: NA
--- OUTSIDE RECORDS SUMMARY | 2024-04-06 11:12 | XMS_ITS | Continuity of Care Document ---
Author Organization [facility] Address [address] [place] [phone] Care Team Providers Care Baggage Smasher Name Role Phone Howard Crespo MD [id number] Date[facility]s): 02/08/24 - 03/09/[address] [address] Encounter Type: Triage Allergies, Adverse Reactions, [...] 6:38:00 PM EDT, Route to Pharmacy Electronically, [facility]/pharmacy #[id number], Partial fill upon patient request if the prescription is for a schedule II opioid drug., 163, cm, 01/23/23 16:30:00 EDT, Height, 103, kg, 01/16/23 22:18:00 EDT, Dry Weight Start Date: 01/23/23 Status: Ordered Quantity: 90.0 Unit: tablet Repeat number: 1 BD UF MINI PEN NEEDLE [id number] BD UF MINI PEN NEEDLE [id number], See Instructions, # 100 Unknown, 4 Refills, Maintenance, TO USE WITHINSULIN 4 X DAY, 02/19/24 4:21:00 PM EST, 163, cm, 02/18/24 14:51:00 EST, Height, 103, kg, 01/16/2322:18:00 EDT, Dry Weight Start Date: 02/19/24 Status: Ordered Quantity: 100.0 Unit: Unknown Repeat number: 1 Dexcom G7 Mid Level Game Designer Dexcom G7 Mid Level Game Designer, See Instructions, # 1 each, Refills 0, [...] Soft Stop, 01/09/24 8:13:00 PM EDT, Tablet, [facility]/pharmacy #[id number], Partial fill upon patient request [...] 0 Refills, Maintenance, 01/04/23 10:51:00 AM EDT, [place], [facility]/pharmacy #[id number], Partial fill upon patient request [...] 6:38:00 PM EDT, Route to Pharmacy Electronically, [facility]/pharmacy #[id number], Partial fill upon patient request [...] 3 Refills, Maintenance, 05/22/23 5:04:00 PM EST, [facility]/pharmacy #[id number], Partial fill upon patient request [...] Refills, Maintenance, 01/23/23 6:45:00 PM EDT, Tablet, [facility]/pharmacy #[id number], Partial fill upon patient request [...] 6:38:00 PM EDT, Route to Pharmacy Electronically, [facility]/pharmacy #[id number], Partial fill upon patient request if the prescription is for a schedule II opioid drug., 163, cm, 01/23/23 16:30:00 EDT, Height, 103, kg, 01/16/23 22:18:00 EDT, Dry Weight Start Date: 01/23/23 Status: Ordered Quantity: 10.0 Unit: tablet Repeat number: 1 Pen [place], 31 G x 5 mm BD Ultra [...] Refills, Maintenance, 02/18/24 3:02:00 PM EST, Solution, [facility]/pharmacy #[id number], Partial fill upon patient request [...] Team Personnel Name: Howard Crespo MD Position: [facility] Outreach Member Role: PCP Address: [address] [place] [address] Howard Crespo MD [place], [place] [address] Telecom: Name: Meghana Mcmahan MD Position: [facility] CORRECTIONAL SUPERVISOR LIEUTENANT Member Role: Lifetime CORRECTIONAL SUPERVISOR LIEUTENANT Physician Address: [address] [place] [address] [facility] CORRECTIONAL [place] [address]- Telecom: Care Team Related Persons Name: LISHA PITTS Name: GISSELLE PALOMINO Insurance Providers Guarantor name: ANTHONYSHAUN PITTS Health Plan Information #: 1 Payer: [employer] Member Number: NA Policy Number: NA Group Number: NA
--- OUTSIDE RECORDS SUMMARY | 2024-04-06 11:12 | XMS_ITS | Continuity of Care Document ---
Author Organization [facility] Address [address] [place] [address], [address] [address]- Care Team Providers Care Glass Cut Off Tender Name Role Phone Howard Crespo MD Primary Care Physician Encounter [facility] [id number] Date(s): 02/19/24 - [facility] [address], [address] [place] [address] Attending Physician: Rach Arboleda MD Referring Physician: Meghana Mcmahan MD Encounter Type: Pre Office Visit Allergies, Adverse Reactions, Alerts Substance Criticality Severity Reaction Reaction Severity Status Rodrigues Active Immunizations Given and Recorded Vaccine Date Status Refusal Reason influenza virus vaccine, inactivated 01/23/23 Give n tetanus/diphtheria/pertussis, acel(Tdap) 12/10/22 Given Medications acetaminophen 325 mg oral tablet 650 mg, By Mouth, Every 4 hours, # 90 tablet, Refills 0, Tot. Refills 0, Maintenance, 01/23/23 6:38:00 PM EDT, Route to Pharmacy Electronically, [facility]/pharmacy #[id number], Partial fill upon patient request if the prescription is for a schedule II opioid drug., 163, cm, 01/23/23 16:30:00 EDT, Height, 103, kg, 01/16/23 22:18:00 EDT, Dry Weight Start Date: 01/23/23 Status: Ordered Quantity: 90.0 Unit: tablet Repeat number: 1 BD UF MINI PEN NEEDLE [id number] BD UF MINI PEN NEEDLE [id number], See Instructions, # 100 Unknown, 4 Refills, Maintenance, TO USE WITHINSULIN 4 X DAY, 02/19/24 4:21:00 PM EST, 163, cm, 02/18/24 14:51:00 EST, Height, 103, kg, 01/16/2322:18:00 EDT, Dry Weight Start Date: 02/19/24 Status: Ordered Quantity: 100.0 Unit: Unknown Repeat number: 1 Dexcom G7 Gasoline Pump Mechanic Dexcom G7 Gasoline Pump Mechanic, See Instructions, # 1 each, Refills 0, [...] Soft Stop, 01/09/24 8:13:00 PM EDT, Tablet, [facility]/pharmacy #[id number], Partial fill upon [...] 0 Refills, Maintenance, 01/04/23 10:51:00 AM EDT, [place], [facility]/pharmacy #[id number], Partial fill upon [...] x day. 1 Bottle= 100 test strips, 9/7/23 12:44:00 PM EDT, Compound, 162.51, cm, 10/29/22 9:32:00 EDT, Height, 97.5, kg, 10/17/22 21:27:00 EDT, Dry Weight Start Date: 12/04/22 Status: Ordered Quantity: 1.0 Unit: pack/packet Repeat number: 4 ibuprofen 800 mg oral tablet 800 mg, 1, tablet, By Mouth, Every 8 hours, # 60 tablet, Refills 0, Tot. Refills 0, Maintenance, 01/23/23 6:38:00 PM EDT, Route to Pharmacy Electronically, [facility]/pharmacy #[id number], Partial fill upon [...] 3 Refills, Maintenance, 05/22/23 5:04:00 PM EST, [facility]/pharmacy #[id number], Partial fill upon [...] Refills, Maintenance, 01/23/23 6:45:00 PM EDT, Tablet, [facility]/pharmacy #[id number], Partial fill upon [...] 3 Refills, Maintenance, 05/22/23 5:07:00PM EST, Tablet, [facility]/pharmacy #[id number], Partial fill upon [...] Refills, Maintenance, 02/22/24 2:08:00 PM EST, Solution, [facility]/pharmacy #[id number], Partial fill upon [...] 6:38:00 PM EDT, Route to Pharmacy Electronically, [facility]/pharmacy #[id number], Partial fill upon patient request if the prescription is for a schedule II opioid drug., 163, cm, 01/23/23 16:30:00 EDT, Height, 103, kg, 01/16/23 22:18:00 EDT, Dry Weight Start Date: 01/23/23 Status: Ordered Quantity: 10.0 Unit: tablet Repeat number: 1 Pen [place], 31 G x 5 mm BD Ultra [...] Refills, Maintenance, 02/18/24 3:02:00 PM EST, Solution, [facility]/pharmacy #[id number], Partial fill upon [...] Team Personnel Name: Howard Crespo MD Position: [facility] Outreach Member Role: PCP Address: [address] [place] [address] Zak [place]Z [place], [place] [address] Telecom: Name: Meghana Mcmahan MD Position: [facility] DUCT CLEANER Member Role: Lifetime DUCT CLEANER Physician Address: [address] [place] [address] [facility] [place] [address]- Telecom: Care Team Related Persons Name: LISHA PITTS Name: GISSELLE PALOMINO Insurance Providers Guarantor name: ANTHONY PITTS Health Plan Information #: 1 Payer: [employer] Member Number: [id number] Policy Number: NA Group Number: NA Health Plan Information #: 2 Payer: [employer] Member Number: [id number] Policy Number: NA Group Number: NA
[2024-04-06 12:19] LABS: Influenza A PCR NEGATIVE (Negative); Influenza B PCR NEGATIVE (Negative); Resp Syncy Virus RNA Qual PCR NEGATIVE (Negative); SARS COV2 PCR INHOUSE NEGATIVE (Negative)
== END 2024-04-06 10:48 | disposition home or self-care (01) ==
LOC: HO.LAB 10:47
PROVIDERS: PCP Internal Medicine; Visit Provider Internal Medicine
DX: J02.9 Acute pharyngitis, unspecified (principal); R05.9 Cough, unspecified; R51.9 Headache, unspecified
CPT/HCPCS: 0241U

== ENCOUNTER 2024-05-06 15:28 | Outpatient (REF) | payer OTHER, SELFPAY ==
--- OUTSIDE RECORDS SUMMARY | 2024-05-06 15:32 | XMS_ITS | Data Portability ---
Author Organization [place] - [facility], Allergy Address [address] [address] Care Team Providers Care Real Estate Accountant Name Role Phone KALLIE LE Primary Care Provider Assessment Encounter Date Assessment Date Assessment LastModified by Organization Details LastModified Time 12/23/2023 12/23/2023 Patient with severe allergic rhinitis, nasal polyps and septal deviation. 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 I have also suggested topical budesonide spray 2 sprays each nostril twice daily. I will also have her do 9 days of prednisone to reduce the polyps and help with getting off the decongestant preparations. Arrange for allergy immunotherapy. She may benefit from surgery at some point in the future, however, we need to have her allergies under better control to have a good result alli Not available 12/23/2023 16:01:07 01/11/2024 01/11/2024 Administered By: Tiffanie Luis RN Use of Antihistamines: No If yes: Vial Test Change in medications: No If yes ? ? ? Increase in asthma symptoms No Asthma Hx If yes, inhaler use: Reaction to last injections: If yes: ? ? ? Allergy Symptoms: Other: ? ? ? Missed 1 week Dose Notes:? ? ? [email or web address] Not available 01/11/2024 15:50:22 Plan of Treatment Reminders Order Date Submit Date Provider Last Modified By Organization Details Last Modified Time Details Appointments Establish ed- Allergy f-up 6mon 2024 01:00P M ANANTH ORTIZ MD Not available Not available Not available Lab ige, total, serum 2023 ROMY [facility], [address], [address], [place], [address], 12/25/2023 19:08:26 CBC w/ auto diff 2023 ROMY [facility], [address], [address], [place], [address], 12/25/2023 19:08:25 unlisted lab - leukotrie ne E4, 24 HR, U 2023 024 [email or web address] [facility], [address], [address], [place], [address], 02/03/2024 13:05:07 Referral None recorded. Procedures allergen immunothe rapy; multiple injection s (PROC) 2023 [email or web address] Not available 12/31/2023 14:20:09 Surgeries None recorded. Imaging None recorded. Medication Orders epinephri ne 0.3 mg/0.3 mL injection , auto-inje ctor 2023 024 [id number], [address] [place], [address], 12/23/2023 16:01:59 prednison e 20 mg tablet 2023 024 [facility][id number], [address] [place], [address], 12/23/2023 16:01:45 budesonid e 32 mcg/actua tion nasal spray 2023 024 [facility][id number], [address] [place], [address], 12/23/2023 16:01:45 Patient TargetsNo targets recorded. Patient InstructionsNo instructions recorded. Reason for Referral None Reported. Results Created Date Observation Date Name Description Value Unit Range Abnormal Flag Note LastModifiedBy Organization Detail LastModifiedTime 12/23/1912/2312/24/2023 CBC WITH DIFFE RENTI AL/PL ATELE T WBC 6.0 x10e3 /uL 3.4-10 .8 normal Not Available [facility] ([facility]) [address] [place], [address], 12/25/2023 19:08:25 12/23/19 24 12/24/2023 CBC WITH DIFFE RENTI AL/PL ATELE T RBC 4.32 x10e6 /uL 3.77-5 .28 normal Not Available [facility] ([facility]) [address] [place], [address], 12/25/2023 19:08:25 12/23/19 24 12/24/2023 CBC WITH DIFFE RENTI AL/PL ATELE T hemoglobin 9.4 g/dL 11.1-1 5.9 below low normal Not Available [facility] ([facility]) [address] [place], [address], 12/25/2023 19:08:25 12/23/19 24 12/24/2023 CBC WITH DIFFE RENTI AL/PL ATELE T hematocrit 32.2 % 34.0-4 6.6 below low normal Not Available [facility] ([facility]) [address] [place], [address], 12/25/2023 19:08:25 12/23/19 24 12/24/2023 CBC WITH DIFFE RENTI AL/PL ATELE T MCV 75 fL 79-97 below low normal Not Available [facility] ([facility]) [address] [place], [address], 12/25/2023 19:08:25 12/23/19 24 12/24/2023 CBC WITH DIFFE RENTI AL/PL ATELE T MCH 21.8 pg 26.6-3 3.0 below low normal Not Available [facility] ([facility]) [address] [place], [address], 12/25/2023 19:08:25 12/23/19 24 12/24/2023 CBC WITH DIFFE RENTI AL/PL ATELE T MCHC 29.2 g/dL 31.5-3 5.7 below low normal Not Available [facility] ([facility]) [address] [facility], [place], [address], 12/25/2023 19:08:25 12/23/19 24 12/24/2023 CBC WITH DIFFE RENTI AL/PL ATELE T RDW 13.6 % 11.7-1 5.4 Not Available [facility] ([facility]) [address] [facility], [place], [address], 12/25/2023 19:08:25 12/23/19 24 12/24/2023 CBC WITH DIFFE RENTI AL/PL ATELE T platelets 267 x10e3 /uL 150-45 0 normal Not Available [facility] ([facility]) [address] [facility], [place], [address], 12/25/2023 19:08:25 12/23/19 24 12/24/2023 CBC WITH DIFFE RENTI AL/PL ATELE T neutrophils 72 % not estab. normal Not Available [facility] ([facility]) [address] [facility], [place], [address], 12/25/2023 19:08:25 12/23/19 24 12/24/2023 CBC WITH DIFFE RENTI AL/PL ATELE T lymphs 20 % not estab. normal Not Available [facility] ([facility]) [address] [facility], [place], [address], 12/25/2023 19:08:25 12/23/19 24 12/24/2023 CBC WITH DIFFE RENTI AL/PL ATELE T monocytes 8 % not estab. normal Not Available [facility] ([facility]) [address] [facility], [place], [address], 12/25/2023 19:08:25 12/23/19 24 12/24/2023 CBC WITH DIFFE RENTI AL/PL ATELE T eos 0 % not estab. normal Not Available [facility] ([facility]) [address] [place], [address], 12/25/2023 19:08:25 12/23/19 24 12/24/2023 CBC WITH DIFFE RENTI AL/PL ATELE T basos 0 % not estab. normal Not Available [facility] ([facility]) [address] [facility], [place], [address], 12/25/2023 19:08:25 12/23/19 24 12/24/2023 CBC WITH DIFFE RENTI AL/PL ATELE T immature cells PROFESSIONAL ORGANIZER Not Available [facility] ([facility]) [address] [place], [address], 12/25/2023 19:08:25 12/23/19 24 12/24/2023 CBC WITH DIFFE RENTI AL/PL ATELE T neutrophils (absolute) 4.3 x10e3 /uL 1.4-7. 0 normal Not Available [facility] ([facility]) [address] [place], [address], 12/25/2023 19:08:25 12/23/19 24 12/24/2023 CBC WITH DIFFE RENTI AL/PL ATELE T lymphs (absolute) 1.2 x10e3 /uL 0.7-3. 1 normal Not Available [facility] ([facility]) [address] [place], [address], 12/25/2023 19:08:25 12/23/19 24 12/24/2023 CBC WITH DIFFE RENTI AL/PL ATELE T monocytes(ab solute) 0.5 x10e3 /uL 0.1-0. 9 normal Not Available [facility] ([facility]) [address] [place], [address], 12/25/2023 19:08:25 12/23/19 24 12/24/2023 CBC WITH DIFFE RENTI AL/PL ATELE T eos (absolute) 0.0 x10e3 /uL 0.0-0. 4 normal Not Available [facility] ([facility]) [address] [facility], [place], [address], 12/25/2023 19:08:25 12/23/19 24 12/24/2023 CBC WITH DIFFE RENTI AL/PL ATELE T baso (absolute) 0.0 x10e3 /uL 0.0-0. 2 normal Not Available [facility] ([facility]) [address] [facility], [place], [address], 12/25/2023 19:08:25 12/23/19 24 12/24/2023 CBC WITH DIFFE RENTI AL/PL ATELE T immature granulocytes 0 % not estab. Not Available [facility] ([facility]) [address] [facility], [place], [address], 12/25/2023 19:08:25 12/23/19 24 12/24/2023 CBC WITH DIFFE RENTI AL/PL ATELE T immature grans (abs) 0.0 x10e3 /uL 0.0-0. 1 Not Available [facility] ([facility]) [address] [facility], [place], [address], 12/25/2023 19:08:25 12/23/19 24 12/24/2023 CBC WITH DIFFE RENTI AL/PL ATELE T NRBC PROFESSIONAL ORGANIZER Not Available [facility] ([facility]) [address] [facility], [place], [address], 12/25/2023 19:08:25 12/23/19 24 12/24/2023 CBC WITH DIFFE RENTI AL/PL ATELE T hematology comments: PROFESSIONAL ORGANIZER Not Available [facility] ([facility]) [address] [place], [address], 12/25/2023 19:08:25 12/23/19 24 12/25/2023 IMMUN OGLOB ULIN E, TOTAL immunoglobul in E, total 21 IU/mL 6-495 Not Available [facility] ([facility]) [address] [facility], [place], [address], 12/25/2023 19:08:26 Result Notes None recorded. Problems Name Problem SNOMED Code Status Onset Date Resolution Date Notes Provider Name and Address Organization Details Recorded Time Deviated nasal septum 416090732 Active 2021 Deviated nasal septum; Note: Date Diagnosed : 11/04/2021 10:27 AM (J34.2) Not Available [facility] 4 02:45:59 Polyp of nasal cavity 634690559 Active 2021 Polyp of nasal cavity; Note: Date Diagnosed : 11/04/2021 10:27 AM (J33.0) Not Available [facility] 4 02:45:58 Allergic rhinitis 82988666 Active 2022 Other allergic rhinitis; Note: Date Diagnosed : 06/23/2022 9:45 AM (J30.89) Not Available [facility] 4 02:46:04 Type 1 diabetes mellitus without complicati on 969753033 Active 2021 Type 1 diabetes mellitus without complicat ions; Note: Date Diagnosed : 11/04/2021 10:27 AM (E10.9) Not Available [facility] 4 02:46:03 Chronic sinusitis 28738260 Active 2023 ANANTH MAR MD [address] [place] [address], [place], [address] , [facility] - [facility] 4 15:59:46 Perennial allergic rhinitis 347282088 Active 2023 TIFFANIE LUIS RN [address] [place], [place] [address] [place], [address] , [facility] - [facility] 4 15:30:22 Problem Notes None recorded. Procedures Surgical History Date Name Laterality Status Provider Name and Address Organization Details Recorded Time 01/11/20 24 Allergy Immunotherapy Injections completed TIFFANIE LUIS RN [address] [place] [address], [place], [address], [facility] - [facility] 01/11/2024 15:50:10 Imaging Results None recorded. Procedure Notes None recorded. Medical Equipment None Reported. Allergies No known drug allergies Medications Name Sig Start Date Stop Date Status Note LastModified by Organization Details LastModified Time Prescript ion - Prior Authoriza tion Request active Script Copy/Marie or Auth^Scr ipt Copy/Marie or Auth_ Not Available Not Available Not Available losartan 50 mg tablet TAKE 1 TABLET BY MOUTH 1 TIME EACH DAY. active Not Available Not Available No t Available amoxicill in 500 mg capsule TAKE 1 CAPSULE BY MOUTH EVERY 12 HOURS FOR 10 DAYS 12/22 completed Not Available Not Available Not Available budesonid e 32 mcg/actua tion nasal spray USE 2 SPRAYS TWICE A DAY INTRANAS ALLY active Not Available Not Available No t Available acetamino phen 325 mg tablet TAKE 2 TABLETS BY MOUTH EVERY 4 HOURS 12/22 completed Not Available Not Available Not Available labetalol 200 mg tablet TAKE 4 TABLET(S ) BY MOUTH THREE TIMES A DAY 12/22 completed Not Available Not Available Not Available ibuprofen 800 mg tablet TAKE 1 TABLET BY MOUTH EVERY 8 HOURS 12/22 completed Not Available Not Available Not Available fluconazo le 150 mg tablet TAKE 1 TABLET BY MOUTH ONCE active Not Available Not Available No t Available FreeStyle Lancets 28 gauge USE DIRECTED 4 TIMES A DAY active Not Available Not Available No t Available prednison e 20 mg tablet Take 3 tablets daily for 3 days, 2 tablets daily for 3 days and 1 tablet daily for 3 days with food 2024 active Not Available Not Available Not Avai lable aspirin 81 mg tablet,de layed release TAKE 2 TABLETS (162MG) BY MOUTH AT BEDTIME 12/22 completed Not Available Not Available Not Available nifedipin e ER 60 mg tablet,ex tended release 24 hr TAKE 1 TABLET BY MOUTH TWICE A DAY active Not Available Not Available No t Available ferrous sulfate 325 mg (65 mg iron) tablet TAKE 1 TABLET (325 MG) BY ORAL ROUTE ONCE DAILY FOR 90 DAYS TAKE W ORANGE JUICE OR VITAMIN C 12/22 completed Not Available Not Available Not Available metformin 1,000 mg tablet TAKE 1 TABLET BY MOUTH TWICE A DAY active Not Available Not Available No t Available triamcino lone acetonide 0.1 % topical ointment APPLY 1 APPLICAT ION TOPICALL Y 2 TIMES A DAY,X14 DAYS, APPLY PEA SIZED AMOUNT TWICE A DAY 12/22 completed Not Available Not Available Not Available clotrimamagaly ole-betam ethasone 1 %-0.05 % topical cream PLEASE SEE ATTACHED FOR DETAILED DIRECTIO NS 12/22 completed Not Available Not Available Not Available lisinopri l 10 mg tablet 12/22 completed Medicati on ID: [id number] B rand Name: lisinopr il Send Method: E-Prescr ibed Sub s Allowed: subs OK Medic ationGen ericName : lisinopr il Not Available Not Available Not Available docusate sodium 100 mg capsule TAKE 1 CAPSULE BY MOUTH TWICE A DAY 12/22 completed Not Available Not Available Not Available epinephri ne 0.3 mg/0.3 mL injection , auto-inje ctor INJECT SUBCUTAN EOUSLY IN CASE OF ANAPHYLA XIS. active Not Available Not Available No t Available ondansetr on 4 mg disintegr ating tablet DISSOLVE 1 TABLET UNDER THE TONGUE 4 TIMES PER DAY (NAUSEA) FOR 7 DAYS 12/22 completed Not Available Not Available Not Available fluticaso ne propionat e 50 mcg/actua tion nasal spray,alta pension USE 1 SPRAY INTO EACH NOSTRIL TWICE DAILY NEEDED FOR CONGESTI ON 12/22 completed Not Available Not Available Not Available oxycodone 5 mg tablet TAKE 1 TABLET BY MOUTH EVERY 3 HOURS NEEDED FOR SEVERE PAIN 12/22 completed Not Available Not Available Not Available insulin lispro (U-100) 100 unit/mL subcutane ous pen INJECT UP TO 100 UNITS SUBCUTAN EOUSLY EVERY DAY active Not Available Not Available No t Available Novolog FlexPen U-100 Insulin aspart 100 unit/mL (3 mL) subcutane ous 12/22 completed Medicati on ID: [id number] B rand Name: Novolog Flexpen U-100 Insulin Send Method: E-Prescr ibed Sub s Allowed: subs OK Medic ationGen ericName : Novolog Flexpen U-100 Insulin Not Available Not Available Not Available BD Ultra-Fin e Mini Pen Needle 31 gauge x 3/16 TO USE WITH INSULIN 4 X DAY active Not Available Not Available No t Available FreeStyle Lite Strips USE TO TEST TWICE A DAY active Not Available Not Available No t Available Lantus Solostar U-100 Insulin 100 unit/mL (3 mL) subcutane ous pen INJECT 28 UNITS SUBCUTAN EOUSLY DAILY AT BEDTIME active Not Available Not Available No t Available cholecalc iferol (vitamin D3) 50 mcg (2,000 unit) capsule 12/22 completed Medicati on ID: [id number] B rand Name: cholecal ciferol (vitamin D3) Send Method: E-Prescr ibed Sub s Allowed: subs OK Medic ationGen ericName : cholecal ciferol (vitamin D3) Not Available Not Available Not Available Jardiance 10 mg tablet TAKE 1 TABLET BY MOUTH EVERY MORNING 12/22 completed Not Available Not Available Not Available Trulicity 1.5 mg/0.5 mL subcutane ous pen injector INJECT 1 PEN SUBCUTAN EOUSLY ONCE WEEKLY, ROTATE INJECTIO N SITES active Not Available Not Available No t Available Trulicity 0.75 mg/0.5 mL subcutane ous pen injector INJECT 0.75 MG SUBCUTAN EOUS INFUSION EVERY WEEK 12/22 completed Not Available Not Available Not Available Dupixent 300 mg/2 mL subcutane ous syringe Inject 1 syringe once every two weeks 11/23 completed Medicati on ID: [id number] D uration Value: 30 Prescri bed By Name: Nando Nash nd Name: Dupixent Syringe Send Method: E-Prescr ibed Sub s Allowed: subs OK Medic ationGen ericName : Dupixent Syringe Not Available Not Available Not Available insulin lispro (U-100) 100 unit/mL subcutane ous half-unit pen PLEASE SEE ATTACHED FOR DETAILED DIRECTIO NS active Not Available Not Available No t Available Dupixent 300 mg/2 mL subcutane ous pen injector 03/28 completed Medicati on ID: [id number] D uration Value: 28 Prescri bed By Name: Nando Nash nd Name: Dupixent Pen Send Method: E-Prescr ibed Sub s Allowed: subs OK Speci al Instruct ion: use as directed every 2 weeks subQ Med icationG enericNa me: Dupixent Pen Not Available Not Available Not Available Dexcom G7 Sensor device USE DIRECTED FOR DIABETES CONTROL active Not Available Not Available No t Available Vitals Date Recorded Body height Body weight Provider Name and Address Organization Details Last Updated DateTime 12/23/2023 162.56 cm 01067.55 g Mellissa Deluca [place] - [facility] 12/23/2023 15:30:11 Date Recorded Body height Body mass index (BMI) Body weight Heart rate Systolic blood pressure Diastolic blood pressure Systolic blood pressure Diastolic blood pressure Provider Name and Address Organization Details Last Updated DateTime 162.56 cm 32.6 kg/m2 19555.5 5 g 83 /min 152 mm[Hg] 87 mm[Hg] 135 mm[Hg] 88 mm[Hg] TIFFANIE LUIS RN [address] [place] [address], [address] , [facility] 15:38:08 Social History None recorded. Functional Status None recorded. Mental Status None recorded. Family History Nothing Reported. Medical History Condition Response Allergies/Hayfever Y Diabetes Y Hypertension Y Gynecological HistoryNo gynecological history recorded. Obstetrics History GPAL:G 0 P 0 0 0 0 Past Encounters Encounter ID Performer Location Encounter Start Date Encounter Closed Date Diagnosis/Indication Diagnosis SNOMED-CT Code Diagnosis ICD10 Code Diagnosis Note [id number] ANANTH MAR MD [facility] [address] [address] 12/23/2023 15:09:07 12/23/2023 16:03:57 Polyp of nasal cavity 043361854 J33.0 Chronic sinusitis 781072 00 J32.9 Allergic rhinitis 459882 04 J30.9 [id number] TIFFANIE LUIS RN Allergy [address] [place] [phone] 01/11/2024 15:18:59 01/11/2024 15:51:51 Allergic rhinitis 98687288 J30.9 Health Concerns Section Related Observation LastModified by Organization Detai ls LastModified Time None Recorded Concern Status LastModified by Organization Details LastModified Time None Recorded Advance Directives Directive None Recorded Payers Encounter Date Sequence Insurance Name Policy Number Policy Jackson Covered Member ID Jackson Member ID Guarantor Name 12/23/2023 1 [facility] (MEDICAID HMO) [id number] Alexandru Chavez [id number] Alexandru Chavez 01/11/2024 1 [facility] (MEDICAID HMO) [id number] Alexandru Chavez [id number] Alexandru Chavez Notes Date Note Type Note Provider Name and Address Organization Details Recorded Time 12/23/2023 text/html Patient with history of diabetes, allergic rhinitis and nasal polyps. Immunotherapy was recommended and it turned out she was . She has since had a healthy boy who is now 11 months old. She has been using Sinex spray every 3 hours. Severe allergy previously noted ANANTH PRO MD [address] [place] [address], [place], [address], [facility] - [facility] 12/23/2023 16:02:22 OBGyn Episode No OBEpisode recorded.
--- OUTSIDE RECORDS SUMMARY | 2024-05-06 15:32 | XMS_ITS | Clinical Summary ---
Author Organization [facility] it Address [address] [place] [address] Care Team Providers Care Chemist Proteins Name Role Phone Unavailable Primary Care Provider Unavailabl e Social History Tobacco Use Types Packs/Day Years Used Date Smoking Tobacco: Never Assessed Sex and Gender Information Value Date Recorded Sex Assigned at Not on file Gender Identity Not on file Sexual Orientation Not on file Plan of Treatment Health Maintenance Due Date Last Done Comments DTaP,Tdap,and Td Vaccines (1 - Tdap) 01/27/2012 Hepatitis B Vaccines (1 of 3 - 19+ 3-dose series) 01/27/2012 Cervical Cancer Screening: P ap Smear 2014 COVID-19 Vaccine ( - 2023-2 5 season) 2023 Influenza Vaccine (#1) 2023 HIB Vaccines Aged Out No longer eligi ble based on patient's age to complete this topic HPV Vaccines Aged Out No longer eligi ble based on patient's age to complete this topic Hepatitis A Vaccines Aged Out No long er eligible based on patient's age to complete this topic IPV Vaccines Aged Out No longer eligi ble based on patient's age to complete this topic MMR Vaccines Aged Out No longer eligi ble based on patient's age to complete this topic Meningococcal ACWY Vaccine Aged Out N o longer eligible based on patient's age to complete this topic Pneumococcal Vaccine: Pediat rics (0 to 5 Years) and At-Risk Patients (6 to 64 Years) Aged Out No longer eligible b ased on patient's age to complete this topic RSV Immunization Patients Un jordan 20 months Aged Out No longer eligible b ased on patient's age to complete this topic Varicella Vaccines Aged Out No longer eligible based on patient's age to complete this topic
--- OUTSIDE RECORDS SUMMARY | 2024-05-06 15:32 | XMS_ITS | Continuity of Care Document ---
Author Organization [facility] Address [address], [address] [address]- Care Team Providers Care Leather Seasoner Name Role Phone Howard Crespo MD Primary Care Physician Encounter [facility] [id number] Date(s): 03/08/24 - 04/07/24 [facility] [address] [place] [address], [address] [place] [id number] Attending Physician: Eliza Cunningham Admitting Physician: Eliza Cunningham Referring Physician: trEliza Encounter Type: Triage Allergies, Adverse Reactions, Alerts [...] 6:38:00 PM EDT, Route to Pharmacy Electronically, [facility]/pharmacy #[id number], Partial fill upon patient request if the prescription is for a schedule II opioid drug., 163, cm, 01/23/23 16:30:00 EDT, Height, 103, kg, 01/16/23 22:18:00 EDT, Dry Weight Start Date: 01/23/23 Status: Ordered Quantity: 90.0 Unit: tablet Repeat number: 1 BD UF MINI PEN NEEDLE [id number] BD UF MINI PEN NEEDLE [id number], See Instructions, # 100 Unknown, 4 Refills, Maintenance, TO USE WITHINSULIN 4 X DAY, 02/19/24 4:21:00 PM EST, 163, cm, 02/18/24 14:51:00 EST, Height, 103, kg, 01/16/2322:18:00 EDT, Dry Weight Start Date: 02/19/24 Status: Ordered Quantity: 100.0 Unit: Unknown Repeat number: 1 Dexcom G7 Sexual Assault Social Worker Dexcom G7 Sexual Assault Social Worker, See Instructions, # 1 each, Refills 0, [...] Soft Stop, 02/11/24 11:17:00 AM EST, Tablet, [facility]/pharmacy #[id number], Partial fill upon patient request [...] Soft Stop, 01/09/24 8:13:00 PM EDT, Tablet, [facility]/pharmacy #[id number], Partial fill upon patient request [...] 0 Refills, Maintenance, 01/04/23 10:51:00 AM EDT, [place], [facility]/pharmacy #[id number], Partial fill upon patient request [...] 6:38:00 PM EDT, Route to Pharmacy Electronically, [facility]/pharmacy #[id number], Partial fill upon patient request [...] 3 Refills, Maintenance, 05/22/23 5:04:00 PM EST, [facility]/pharmacy #[id number], Partial fill upon patient request [...] Refills, Maintenance, 01/23/23 6:45:00 PM EDT, Tablet, [facility]/pharmacy #[id number], Partial fill upon patient request if the prescription is for a schedule IIopioid drug., 163, cm, 01/23/23 16:30:00 EDT, Height, 103, kg, 01/16/23 22:18:00 EDT, Dry Weight Start Date: 01/23/23 Status: Ordered Quantity: 90.0 Unit: tablet Repeat number: 4 Lantus Solostar Pen 100 units/mL subcutaneous solution See Instructions, INJECT 28 UNITS SUBCUTANEOUSLY DAILY AT BEDTIME, # 30 Unknown, 3 Refills, Maintenance, 03/28/24 7:48:00 AM EST, [facility], 163, cm, 02/18/24 14:51:00 EST, Height, 103, kg, 01/16/23 22:18:00 EDT, Dry Weight Start Date: 03/28/24 Status: Ordered Quantity: 30.0 Unit: Unknown Repeat number: 1 metFORMIN 1000 mg oral tablet 1 tablet = 1,000 mg, By Mouth, 2 times a day, # 180 tablet, 3 Refills, Maintenance, 05/22/23 5:07:00PM EST, Tablet, [facility]/pharmacy #[id number], Partial fill upon patient request [...] Refills, Maintenance, 02/22/24 2:08:00 PM EST, [place], [facility]/pharmacy #[id number], Partial fill upon patient request [...] 6:43:00 PM EDT, Route to Pharmacy Electronically, [facility]/pharmacy #[id number], Partial fill upon patient request [...] 6:38:00 PM EDT, Route to Pharmacy Electronically, [facility]/pharmacy #[id number], Partial fill upon patient request if the prescription is for a schedule II opioid drug., 163, cm, 01/23/23 16:30:00 EDT, Height, 103, kg, 01/16/23 22:18:00 EDT, Dry Weight Start Date: 01/23/23 Status: Ordered Quantity: 10.0 Unit: tablet Repeat number: 1 Pen [place], 31 G x 5 mm BD Ultra [...] Refills, Maintenance, 02/18/24 3:02:00 PM EST, Solution, [facility]/pharmacy #[id number], Partial fill upon patient request [...] Team Personnel Name: Howard Crespo MD Position: [facility] Outreach Member Role: PCP Address: [address] [place] [address] Howard Zak [place]OPEZ [place], [place] [address] Telecom: Name: Meghana Mcmahan MD Position: [facility] TINSMITH HELPER Member Role: Lifetime TINSMITH HELPER Physician Address: [address] [place] [address] [facility] [place] [address]- Telecom: Care Team Related Persons Name: LISHA PITTS Name: GISSELLE PALOMINO Insurance Providers Guarantor name: ANTHONYSHAUN PITTS Health Plan Information #: 1 Payer: [employer] Member Number: NA Policy Number: NA Group Number: NA
--- OUTSIDE RECORDS SUMMARY | 2024-05-06 15:32 | XMS_ITS | Continuity of Care Document ---
Author Organization [facility] Address [address] [place] [address], [address], [place] [address]- Care Team Providers Care Weld Lay Out Worker Name Role Phone Howard Crespo MD Primary Care Physician [phone] [facility]counter [facility] [id number] Date(s): 04/25/24 - [facility] [address], [address] [place] [id number] Attending Physician: Annia Luong Encounter Type: Office Visit Allergies, Adverse Reactions, Alerts Substance [...] 6:38:00 PM EDT, Route to Pharmacy Electronically, [facility]/pharmacy #[id number], Partial fill upon patient request if the prescription is for a schedule II opioid drug., 163, cm, 01/23/23 16:30:00 EDT, Height, 103, kg, 01/16/23 22:18:00 EDT, Dry Weight Start Date: 01/23/23 Status: Ordered Quantity: 90.0 Unit: tablet Repeat number: 1 BD UF MINI PEN NEEDLE [id number] BD UF MINI PEN NEEDLE [id number], See Instructions, # 100 Unknown, 4 Refills, Maintenance, TO USE WITHINSULIN 4 X DAY, 02/19/24 4:21:00 PM EST, 163, cm, 02/18/24 14:51:00 EST, Height, 103, kg, 01/16/2322:18:00 EDT, Dry Weight Start Date: 02/19/24 Status: Ordered Quantity: 100.0 Unit: Unknown Repeat number: 1 Dexcom G7 Tactical Response Group Officer Dexcom G7 Tactical Response Group Officer, See Instructions, # 1 each, Refills 0, [...] Soft Stop, 01/09/24 8:13:00 PM EDT, Tablet, [facility]/pharmacy #[id number], Partial fill upon patient request if [...] 0 Refills, Maintenance, 01/04/23 10:51:00 AM EDT, [place], [facility]/pharmacy #[id number], Partial fill upon patient request if [...] 6:38:00 PM EDT, Route to Pharmacy Electronically, [facility]/pharmacy #[id number], Partial fill upon patient request if [...] 3 Refills, Maintenance, 05/22/23 5:04:00 PM EST, [facility]/pharmacy #[id number], Partial fill upon patient request if [...] Refills, Maintenance, 01/23/23 6:45:00 PM EDT, Tablet, [facility]/pharmacy #[id number], Partial fill upon patient request if [...] Maintenance, 03/28/24 7:48:00 AM EST, [facility], 163, cm, 02/18/24 14:51:00 EST, Height, 103, kg, 01/16/23 22:18:00 EDT, Dry Weight Start Date: 03/28/24 Status: Ordered Quantity: 30.0 Unit: Unknown Repeat number: 1 metFORMIN 1000 mg oral tablet 1 tablet = 1,000 mg, By Mouth, 2 times a day, # 180 tablet, 3 Refills, Maintenance, 05/22/23 5:07:00PM EST, Tablet, [facility]/pharmacy #[id number], Partial fill upon patient request if [...] Refills, Maintenance, 02/22/24 2:08:00 PM EST, Solution, [facility]/pharmacy #[id number], Partial fill upon patient request if [...] 6:43:00 PM EDT, Route to Pharmacy Electronically, [facility]/pharmacy #[id number], Partial fill upon patient request if [...] 6:38:00 PM EDT, Route to Pharmacy Electronically, [facility]/pharmacy #[id number], Partial fill upon patient request if the prescription is for a schedule II opioid drug., 163, cm, 01/23/23 16:30:00 EDT, Height, 103, kg, 01/16/23 22:18:00 EDT, Dry Weight Start Date: 01/23/23 Status: Ordered Quantity: 10.0 Unit: tablet Repeat number: 1 Pen [place], 31 G x 5 mm BD Ultra [...] week. rotate injection sites, # 2.5 mL, 11 Refills, Maintenance, 05/18/24 3:02:00 PM EST, Solution, [facility]/pharmacy #[id number], Partial fill upon patient request if the prescription is for a schedule II opioiddrug., 163, cm, 04/25/24 15:03:00 EST, Height, 103, kg, 01/16/23 22:18:00 EDT, Dry Weight Start Date: 05/18/24 Stop Date: 05/13/25 Status: Ordered Quantity: 2.5 Unit: mL Repeat number: 12 Indication: Type 2 diabetes mellitus without complications Trulicity Pen 1.5 mg/0.5 mL subcutaneous solution 0.5 mL = 1.5 mg, Subcutaneous Injection, Every week, for 30 days, 0.5 ml = 1.5 mg, Subcutaneous Inection, every week. rotate injection sites, # 2.5 mL, 2 Refills, Hard Stop 05/18/24 3:02:00 PM EST, 02/18/24 3:02:00 PM EST, Solution, [facility]/pharmacy #[id number], Partial fill upon patient request if [...] Active Type 2 diabetes mellitus Confirmed Active Vital Signs Most recent to oldest [Reference Range]: 1 Height 163 cm (04/25/24 3:03 PM) Pulse Rate [55-90 bpm] 89 bpm (04/25/24 3:03 PM) Blood Pressure [90-138/55-84 mm Hg] 148/ 87mm Hg *H* (04/25/24 3:03 PM) Blood pressure sites Arm, right (04/25/24 3:03 PM) Weight Obtained Via Standing scale (04/25/24 3:03 PM) Social History Social History Type Response Smoking Status Never (less than 100 in lifetime) entered on: 10/11/20 Sex Sex Representation Female (finding) Patient Care team information Care Team Personnel Name: Howard Crespo MD Position: [facility] Outreach Member Role: PCP Address: [address] [place] [address] [place] [address]- Telecom: Name: Meghana Mcmahan MD Position: [facility] PAVING RAMMER MD Member Role: Lifetime PAVING RAMMER Physician Address: [address] [place] [address] [facility] [place] [address]- Telecom: Care Team Related Persons Name: LISHA PITTS Name: GISSELLE PALOMINO Insurance Providers Guarantor name: ANTHONY PITTS Health Plan Information #: 1 Payer: [employer] Member Number: [id number] Policy Number: NA Group Number: NA Health Plan Information #: 2 Payer: [employer] Member Number: [id number] Policy Number: NA Group Number: NA
--- OUTSIDE RECORDS SUMMARY | 2024-05-06 15:32 | XMS_ITS | Clinical Summary ---
Author Organization [facility] Address [address] [place] [phone] Phone Care Team Providers Care Hha Name Role Phone Howard Crespo MD Primary Care Provider [phone] Allergies Active Allergy Reactions Criticality Noted Date Comments Other 02/11/2019 seasonal Medications Trulicity 0.75 MG/0.5ML solution pen-injector INJECT 0.75 MG SUBCUTANEOUS INFUSION EVERY WEEK 4 Active fluconazole (DIFLUCAN) 150 MG tablet 4 Active insulin aspart (NovoLOG FLEXPEN) 100 UNIT/ML injection 0 Active Insulin Lispro, 1 Unit Dial, 100 UNIT/ML solution pen-injector INJECT UP TO 100 UNITS SUBCUTANEOUSLY EVERY DAY 4 Active Lantus SoloStar 100 UNIT/ML injection INJECT 28 UNITS SUBCUTANEOUSLY DAILY AT BEDTIME 4 Active metFORMIN (GLUCOPHAGE) 1000 MG tablet Take 1,000 mg by mouth Active tretinoin (RETIN-A) 0.025 % cream See administration instructions Active losartan (Cozaar) 50 MG tablet Take 1 tablet (50 mg total) by mouth 1 (one) time each day 30 tablet 11 4 025 Active Jardiance 10 MG tablet Take by mouth 4 Active Active Problems Problem Noted Date Diagnosed Date Essential hypertension 06/19/2023 Resolved Problems Problem Noted Date Diagnosed Date Resolved Date Hypertrophy of breast 06/19/20232023 Immunizations Name Administration Dates Next Due Hepatitis B 08/31/2016,12/10/2015,11/08/2015 Influenza, Unspecified 02/02/2022 Pfizer SARS-COV-2 02/02/2022,01/02/2021,12/13/19 21 Tdap 06/02/2018 Family History Medical History Relation Comments Heart disease Father Cirrhosis Maternal Grandfather Alzheimer's disease Maternal Grandmother Relation Status Comments Father Maternal Grandfather Maternal Grandmother Mother Alive Social History Tobacco Use Types Packs/Day Years Used Date Smoking Tobacco: Never Smokeless Tobacco: Never Tobacco Cessation:Counseling Given: Not Answered Alcohol Use Standard Drinks/Week Comments Not Currently 0 (1 standard drink = 0.6 oz pur e alcohol) Comments Unknown Sex and Gender Information Value Date Recorded Sex Assigned at Not on file Legal Sex Female 4:42 PM EST Gender Identity Not on file Sexual Orientation Not on file Last Filed Vital Signs Vital Sign Reading Time Taken Comments Blood Pressure 108/64 08/21/2023 9:35 AM EDT Pulse 104 08/21/2023 9:35 AM EDT Temperature - - Respiratory Rate - - Oxygen Saturation 99% 06/19/2023 11:41 AM EDT Inhaled Oxygen Concentration - - Weight 81.6 kg (180 lb) 08/21/2023 9:35 AM EDT Height 162.6 cm (5' 4 ) 06/19/2023 11:41 AM EDT Body Mass Index 30.9 06/19/2023 11:41 AM EDT Plan of Treatment Health Maintenance Due Date Last Done Comments Pneumococcal Vaccine: Pediat rics (0 to 5 Years) and At-Risk Patients (6 to 64 Years) (1 of 2 - PCV) 1999 Hepatitis B Vaccine (1 of 3 - 19+ 3-dose series) 01/27/2012 08/31/2016, 12/10/2015, 11/08/2015 Diabetes: Hemoglobin A1C 06/19/2023 Diabetes: Ophthalmology Exam 06/19/2023 Diabetes: Pedal Pulse Checked 06/19/2023 Diabetes: Sensory Foot Exam 06/19/2023 Diabetes: Visual Foot Exam 06/19/2023 Influenza Vaccine (#1) 2023 01/23/2023, 2021 Insurance [employer] HE[employer] Care Teams Hha Relationship Specialty Start Date End Date Howard Crespo MD [id number] [place], [place] PCP - General Internal Medicine 05/12/23
--- OUTSIDE RECORDS SUMMARY | 2024-05-06 15:33 | XMS_ITS | Continuity of Care Document ---
Author Organization [facility] Address [address] [facility], [address], [place] [address]- Care Team Providers Care Wave Soldering Machine Operator Name Role Phone Howard Crespo MD Primary Care Physician [phone] Encounter [facility] [id number] Date(s): 01/04/24 - 04/07/24 [facility] [address] [place] [address], [address] [place] [address] Attending Physician: Meghana Mcmahan MD Referring Physician: Not on Staff, Referring MD Encounter Type: Pre Office Visit Allergies, [...] 6:38:00 PM EDT, Route to Pharmacy Electronically, [facility]/pharmacy #[id number], Partial fill upon patient request if the prescription is for a schedule II opioid drug., 163, cm, 01/23/23 16:30:00 EDT, Height, 103, kg, 01/16/23 22:18:00 EDT, Dry Weight Start Date: 01/23/23 Status: Ordered Quantity: 90.0 Unit: tablet Repeat number: 1 BD UF MINI PEN NEEDLE [id number] BD UF MINI PEN NEEDLE [id number], See Instructions, # 100 Unknown, 4 Refills, Maintenance, TO USE WITHINSULIN 4 X DAY, 02/19/24 4:21:00 PM EST, 163, cm, 02/18/24 14:51:00 EST, Height, 103, kg, 01/16/2322:18:00 EDT, Dry Weight Start Date: 02/19/24 Status: Ordered Quantity: 100.0 Unit: Unknown Repeat number: 1 Dexcom G7 Stagecraft Teacher Dexcom G7 Stagecraft Teacher, See Instructions, # 1 each, Refills 0, [...] Soft Stop, 01/09/24 8:13:00 PM EDT, Tablet, [facility]/pharmacy #[id number], Partial fill upon patient request if [...] 0 Refills, Maintenance, 01/04/23 10:51:00 AM EDT, [place], [facility]/pharmacy #[id number], Partial fill upon patient request if [...] 6:38:00 PM EDT, Route to Pharmacy Electronically, [facility]/pharmacy #[id number], Partial fill upon patient request if [...] 3 Refills, Maintenance, 05/22/23 5:04:00 PM EST, [facility]/pharmacy #[id number], Partial fill upon patient request if [...] Refills, Maintenance, 01/23/23 6:45:00 PM EDT, Tablet, [facility]/pharmacy #[id number], Partial fill upon patient request if [...] Maintenance, 03/28/24 7:48:00 AM EST, [facility], 163, cm, 02/18/24 14:51:00 EST, Height, 103, kg, 01/16/23 22:18:00 EDT, Dry Weight Start Date: 03/28/24 Status: Ordered Quantity: 30.0 Unit: Unknown Repeat number: 1 metFORMIN 1000 mg oral tablet 1 tablet = 1,000 mg, By Mouth, 2 times a day, # 180 tablet, 3 Refills, Maintenance, 05/22/23 5:07:00PM EST, Tablet, [facility]/pharmacy #[id number], Partial fill upon patient request if [...] Refills, Maintenance, 02/22/24 2:08:00 PM EST, Solution, [facility]/pharmacy #[id number], Partial fill upon patient request if [...] 6:43:00 PM EDT, Route to Pharmacy Electronically, [facility]/pharmacy #[id number], Partial fill upon patient request if [...] 6:38:00 PM EDT, Route to Pharmacy Electronically, [facility]/pharmacy #[id number], Partial fill upon patient request if the prescription is for a schedule II opioid drug., 163, cm, 01/23/23 16:30:00 EDT, Height, 103, kg, 01/16/23 22:18:00 EDT, Dry Weight Start Date: 01/23/23 Status: Ordered Quantity: 10.0 Unit: tablet Repeat number: 1 Pen [place], 31 G x 5 mm BD Ultra [...] Refills, Maintenance, 02/18/24 3:02:00 PM EST, Solution, [facility]/pharmacy #[id number], Partial fill upon patient request if [...] Team Personnel Name: Howard Crespo MD Position: [facility] Outreach Member Role: PCP Address: [address] [place] [address] [place] [address]- Telecom: Name: Meghana Mcmahan MD Position: [facility] FORESTRY AID Member Role: Lifetime FORESTRY AID Physician Address: [address] [place] [address] [facility] [place] [address]- Telecom: Care Team Related Persons Name: LISHA PITTS Name: GISSELLE PALOMINO Insurance Providers Guarantor name: ANTHONY PITTS Health Plan Information #: 1 Payer: [employer] Member Number: [id number] Policy Number: NA Group Number: NA Health Plan Information #: 2 Payer: [employer] Member Number: [id number] Policy Number: NA Group Number: NA
[2024-05-06 15:43] LABS: MANUAL DIFF FLAG NO
[2024-05-06 15:46] LABS: Basophils Percent Auto 0.1 % (0-2); Hematocrit 29.1 % (37.0-47.0); Hemoglobin 8.9 g/dl (12.0-16.0); Imm Gran Abs Auto 0.08 X10*3/uL (0.00-0.03); Imm Gran Pct Auto 0.9 % (0.0-0.4); Lymphocytes Absolute Auto 0.9 X10*3/uL (1.2-4.9); Lymphocytes Percent Auto 10.1 % (20-40); Mean Corpuscular HGB Conc 30.6 g/dl (31.0-35.0); Mean Corpuscular Hemoglobin 21.2 pg (27.0-33.0); Mean Corpuscular Volume 69.5 fL (80.0-98.0); Mean Platelet Volume 9.3 fL (9.4-12.3); Monocytes Absolute Auto 0.4 X10*3/uL (0.1-1.2); Monocytes Percent Auto 3.9 % (2-11); Neutrophils Absolute Auto 7.8 x10*3/uL (2.0-8.3); Platelet Count 249 X10*3/uL (160-400); Red Blood Count 4.19 X10*6/uL (4.20-5.50); White Blood Count 9.2 X10*3/uL (4.8-10.8)
[2024-05-06 16:03] LABS: Estimated Average Glucose 192 mg/dL; Hemoglobin A1C 158.6305 umol/L; Hemoglobin A1c % 8.3 % (<6.0); Total Hemoglobin (HGBA1C) 2372.6072 umol/L
[2024-05-06 16:29] LABS: Alanine Aminotransferase 25 U/L (0-31); Albumin Level 3.6 g/dL (3.5-5.0); Anion Gap 11 (12-20); Aspartate Amino Transferase 22 U/L (5-31); Bilirubin Total 0.9 mg/dL (0.0-1.0); Blood Urea Nitrogen 16 mg/dL (9-16); Calcium 8.7 mg/dL (8.4-10.2); Carbon Dioxide 28 mmol/L (22-29); Chloride 106 mmol/L (96-108); Estimated Glomerular Filt Rate > 60; Glucose Random 267 mg/dL (60-115); Potassium 4.4 mmol/L (3.3-5.1); Sodium 141 mmol/L (135-145)
[2024-05-06 16:42] LABS: Alkaline Phosphatase 87 U/L (39-117)
== END 2024-05-06 15:29 | disposition home or self-care (01) ==
LOC: HO.LAB 15:28
PROVIDERS: PCP Internal Medicine; Visit Provider Internal Medicine
DX: E11.9 Type 2 diabetes mellitus without complications (principal); R60.9 Edema, unspecified
CPT/HCPCS: 36415; 80053; 82550; 83036; 85025